=== PATIENT | female | born 1990 | race Caucasian/White ===

== ENCOUNTER → 2017-12-10 09:09 | Outpatient (CLI) | payer BC, SELFPAY ==
[2017-12-10 10:58] LABS: hCG Titer Quant., Serum 478 mIU/mL (<9 non-preg)
== END ==
PROVIDERS: Family Provider Family Medicine; PCP Family Medicine; Visit Provider Nurse Practitioner Women's Health
DX: N91.2 Amenorrhea, unspecified (principal)
CPT/HCPCS: 36415; 84702

== ENCOUNTER → 2017-12-12 07:07 | Outpatient (CLI) | payer BC, SELFPAY ==
[2017-12-12 08:02] LABS: hCG Titer Quant., Serum 1173 mIU/mL (<9 non-preg)
== END ==
PROVIDERS: Nurse Practitioner Women's Health; Family Provider Family Medicine; PCP Family Medicine; Visit Provider Obstetrics & Gynecology
DX: N91.2 Amenorrhea, unspecified (principal)
CPT/HCPCS: 36415; 84702

== ENCOUNTER → 2017-12-18 08:20 | Outpatient (CLI) | payer BC, SELFPAY ==
[2017-12-18 09:55] LABS: hCG Titer Quant., Serum 12919 mIU/mL (<9 non-preg)
== END ==
PROVIDERS: Family Provider Family Medicine; PCP Family Medicine; Visit Provider Obstetrics & Gynecology
DX: O20.0 Threatened abortion (principal); Z3A.00 Weeks of gestation of pregnancy not specified
CPT/HCPCS: 36415; 84702; 86850; 86900

== ENCOUNTER 2017-12-26 21:23 | Emergency (ER) | payer BC, SELFPAY ==
[2017-12-26 21:24] VITALS: BP 115/77; PULSE 103; RESP 18; TEMP 36.7; O2SAT 98; BMI 21.6
[2017-12-26 22:00] VITALS: BP 113/72; PULSE 104; RESP 16; O2SAT 97
--- NOTE | 2017-12-26 23:54 | ED.DCSUM_ITS ---
- ER Visit Summary Date of Service: 12/26/17 Chief Complaint: Vaginal bleeding History of Present Illness: The patient is a [address] Kristopher Marrufo. She is 6 weeks and 4 days based on her last menstrual period. She has not had an ultrasound. This is her first . Her blood type is a positive. Patient reports that approximately 1 hour ago she passed a large amount of blood. Currently she is only spotting. She describes an aching suprapubic pain that is 4 out of 10 at worst and 2 out of 10 currently. Is worsened by movement and relieved by remaining still. She denies any other complaints. Physical Examination: Vitals: Stable. Afebrile. General: Well-nourished and well-developed. Head: Normocephalic atraumatic. Neck: Supple, no lymphadenopathy. No JVD. Nontender. Cardiovascular: Regular rate and rhythm. No murmurs. Respiratory: No respiratory distress. Clear to auscultation bilaterally. Abdominal: Soft, mild suprapubic tenderness to palpation, nondistended, normal bowel sounds. No guarding, rebound, or peritoneal signs. Back: Nontender. Extremities: Nontender, no edema. Skin: Normal color, no rash. Neurologic: Alert and oriented ?3. Cranial nerves II through XII are intact. Normal strength and sensation. Psych: Normal affect. Test Results: Labs were reviewed and her blood type is indeed a positive. Her quantitative hCG was 12,919 on December 18. Today her quant is 57,851. Transvaginal ultrasound shows a single intrauterine at 6 weeks 5 days with heart tones 134. It does show a corpus luteum cyst on the left. There also is a 5.9 cm complex left ovarian cyst that is likely hemorrhagic. Emergency Department Course and Treatment: Patient refused pain and nausea medications. She is resting comfortably. Treatment Plan: The patient was discussed with Dr. Kristopher Marrufo. At this time it is not felt that the hemorrhagic cyst should cause any further problems. She is instructed to follow-up Dr. Caro within a week for another exam. Return to the emergency department for any worsening symptoms. Disposition: To home in improved and stable condition. Impression: 1. First trimester . 2. Vaginal bleeding. 3. Left ovarian hemorrhagic cyst. This note was generated with [employer] software. It may contain incorrect words, spelling, and punctuation that were not noted in review of the chart prior to signing ED Disposition - Plan for ED Patient: Disposition: Home or Assisted Living Chief Complaint: Vag Bld, Preg Instructions: ED Miscarriage Poss Referrals: Evelyne Caro MD [STAFF PHYSICIAN] - 1 Week
== END 2017-12-27 00:06 | disposition home or self-care (01) ==
LOC: ED 22:36
PROVIDERS: Emergency Provider Emergency Medicine; Family Provider Family Medicine; PCP Family Medicine
DX: O20.9 Hemorrhage in early pregnancy, unspecified (principal); O34.81 Maternal care for other abnormalities of pelvic organs, first trimester; N83.202 Unspecified ovarian cyst, left side; Z3A.01 Less than 8 weeks gestation of pregnancy
CPT/HCPCS: 36415; 76817; 84702; 99282

== ENCOUNTER → 2018-01-07 16:10 | Outpatient (CLI) | payer BC, SELFPAY ==
[2018-01-07 17:13] LABS: Absolute Lymphocyte Count 1.94 X10^3/ul (0.83-4.51); Absolute Neutrophil Count 6.9 X10^3/uL (2.0-7.7); Basophil# 0.01 X10^3/uL; Basophil% 0.1 % (0-1); Eosinophil# 0.12 X10^3/uL; Eosinophils% 1.2 % (0-5); Hematocrit 36.7 % (37-47); Lymphocyte # 1.94 X10^3/ul (4.0); Mean Corp Hgb Conc 32.7 g/gl (32-36); Mean Corpuscular Hgb 30.5 pg (27.0-32.0); Mean Corpuscular Volume 93.1 fL (81-99); Mean Platelet Vol. 9.2 fl (6.2-12.0); Monocyte# 0.74 X10^3/uL; Monocyte% 7.6 % (0-10); Neutrophil # 6.86 X10^3/uL (2.7-7.7); Platelet Count 264 K/mm3 (150-450); RBC Distribution Width SD 41.1 fl (35.1-43.9); Red Blood Count 3.94 M/mm3 (4.2-5.4); White Blood Count 9.7 K/mm3 (4.4-11.0)
[2018-01-07 17:15] LABS: POSITIVE COUNT NO; POSITIVE DIFFERENTIAL NO; POSITIVE MORPHOLOGY NO
[2018-01-07 18:12] LABS: HIV - WCH Non-Reactive (Nonreactive); Rubella IgG 415.3 IU/mL
[2018-01-09 11:20] LABS: HEPATITIS B SURFACE AG Negative (Negative)
[2018-01-11 03:49] LABS: Rapid Plasmin Reagin (RPR) NONREACTIVE (NONREACTIVE)
== END ==
PROVIDERS: Family Provider Family Medicine; PCP Family Medicine; Visit Provider Obstetrics & Gynecology
DX: Z34.90 Encounter for supervision of normal pregnancy, unspecified, unspecified trimester (principal)
CPT/HCPCS: 36415; 85025; 86592; 86703; 86762; 86850; 86900; 87340

== ENCOUNTER → 2018-01-07 21:23 | Outpatient (CLI) | payer BC, SELFPAY ==
[2018-01-07 23:22] LABS: Chlamydia Trachomatis by PCR Negative (Negative); Neisserai gonorrhoeae by PCR Negative (Negative); Probe Check PASS; Sample Adequacy Control PASS; Specimen Processing Control PASS
[2018-01-09 17:22] LABS: HPV Reflexed? NOT INDICATED
== END ==
PROVIDERS: Family Provider Family Medicine; PCP Family Medicine; Visit Provider Obstetrics & Gynecology
DX: Z34.90 Encounter for supervision of normal pregnancy, unspecified, unspecified trimester (principal); Z12.4 Encounter for screening for malignant neoplasm of cervix
CPT/HCPCS: 87086; 87491; 87591; 88175; G0145

== ENCOUNTER 2018-05-13 08:40 | Outpatient (CLI) | payer BC, SELFPAY ==
[2018-05-13 08:44] VITALS: BMI 24.0
[2018-05-13 09:01] VITALS: BMI 24.7
--- NOTE | 2018-05-13 10:30 | US_ITS ---
STUDY: SECOND AND THIRD TRIMESTER OBSTETRICAL ULTRASOUND - LIMITED REASON FOR EXAM: Female, 28 years old. Bleeding. History of placenta previa. LMP: November 10, 2017. PRIOR ULTRASOUND: Comparison is made with prior study dated December 26, 2017. TECHNIQUE: Transabdominal and Transvaginal TECHNICAL QUALITY: Adequate. FINDINGS: There is a single intrauterine fetus. The fetus is in a cephalic presentation. There is demonstrated cardiac activity with a heart rate of 150 bpm. There is a normal amniotic fluid volume. The largest amniotic fluid pocket measures 4.4 cm. The amniotic fluid index (KIAH) is 13.8 cm. The placenta is posterior with a complete previa. There are Grade 1 placental changes. The cervix measures 3.8 cm in length. Age by LMP: 26 weeks, 2 days. ADWOA by LMP: August 17, 2017. age by prior US: 26 weeks, 6 days. ADWOA by prior US: August 13, 2017. US/OB Limited (No Biometrics) IMPRESSION: Once again, there is a complete placenta previa. Electronically Signed: Brandan Gonzalez MD at 11:29 EST Tel [phone], Service support ,
--- NOTE | 2018-05-13 11:37 | OB.TRI.NOTE ---
- Problem List (1) Vaginal bleeding during Status: Acute (2) Placenta previa Status: Acute Qualifiers: Comment: complete posterior, repeat US at 28 weeks-recommended pelvic rest (3) Supervision of high risk , antepartum Status: Acute Comment: PRR ADWOA 08/17/18 Piyush (4) Status: Acute Qualifiers: Comment: genetic, carrier, and NTD screening declined. Anatomy repeat US normal, still placenta previa History of Present Illness Date of Service: 05/13/18 Was patient seen by the physician?: No Reason For Visit: MONITOR FOR PLACENTA PREVIA Date of Service: 05/13/18 History of Present Illness: co small brown discharge at home when wiping- has history of previa no ct or pain Allergies adhesive Allergy (Verified 05/13/18 09:02) Rash bacitracin [From Polysporin] Allergy (Verified 05/13/18 09:02) Rash peanut Allergy (Verified 05/13/18 09:02) Unknown polymyxin B [From Polysporin] Allergy (Verified 05/13/18 09:02) Rash processed food Allergy (Mild, Uncoded 05/13/18 09:02) Other taro Allergy (Mild, Uncoded 05/13/18 09:02) Other - Pertinent Past Medical History Medical History: Past Medical History (Last Reviewed 05/01/18 @ 08:22 by Josefina Canchola) Abnormal Pap smear of cervix Right ovarian cyst Surgical History: Past Surgical History (Last Reviewed 05/01/18 @ 08:22 by Josefina Canchola) History of right oophorectomy NST - FHR Rate Baby A Baseline: 150 Variability:: Moderate NST Reactive:: Appropriate for gestational age Impression/Plan vaginal bleeding- us done no abruption seen and stable placenta posterior previa seen long cervical length, no contractions and tracing reassuring. dc home bleeding precautions. rh positive
== END 2018-05-13 11:45 | disposition home or self-care (01) ==
LOC: WPOUT 08:46 → WP 08:47
PROVIDERS: Family Provider Family Medicine; PCP Family Medicine; Referring Provider Obstetrics & Gynecology; Visit Provider Obstetrics & Gynecology
DX: O46.90 Antepartum hemorrhage, unspecified, unspecified trimester (principal); O44.00 Complete placenta previa NOS or without hemorrhage, unspecified trimester; O09.90 Supervision of high risk pregnancy, unspecified, unspecified trimester; Z3A.00 Weeks of gestation of pregnancy not specified
CPT/HCPCS: 59025; 59050; 76815; 99218; G0378

== ENCOUNTER → 2018-05-31 09:34 | Outpatient (CLI) | payer BC, SELFPAY ==
[2018-05-31 09:32] VITALS: BMI 24.7
[2018-05-31 10:29] LABS: Absolute Lymphocyte Count 1.35 X10^3/ul (0.83-4.51); Absolute Neutrophil Count 7.2 X10^3/uL (2.0-7.7); Basophil# 0.01 X10^3/uL; Basophil% 0.1 % (0-1); Eosinophil# 0.07 X10^3/uL; Eosinophils% 0.7 % (0-5); Hematocrit 34.5 % (37-47); Hemoglobin 11.2 g/dl (12.0-15.0); Lymphocyte # 1.35 X10^3/ul (4.0); Lymphocyte % 14.4 % (19-41); Mean Corp Hgb Conc 32.5 g/gl (32-36); Mean Corpuscular Hgb 30.9 pg (27.0-32.0); Mean Corpuscular Volume 95.3 fL (81-99); Mean Platelet Vol. 8.9 fl (6.2-12.0); Monocyte# 0.76 X10^3/uL; Monocyte% 8.1 % (0-10); Neutrophil # 7.16 X10^3/uL (2.7-7.7); Neutrophil % 76.2 % (47-70); POSITIVE COUNT NO; POSITIVE DIFFERENTIAL NO; POSITIVE MORPHOLOGY NO; Platelet Count 187 K/mm3 (150-450); RBC Distribution Width CV 12.5 % (11.6-14.6); RBC Distribution Width SD 42.9 fl (35.1-43.9); Red Blood Count 3.62 M/mm3 (4.2-5.4); White Blood Count 9.4 K/mm3 (4.4-11.0)
[2018-05-31 10:35] LABS: Glucose Challenge Gest 1H 50g 96 mg/dL (70-140)
--- OUTSIDE RECORDS SUMMARY | 2018-08-04 17:03 | XMS RPT_ITS ---
:1990 Author Organization OHIP Support Name Relationship Address Phone ANTONIO MENDEZ Unavailable [address] + [place] [address] SOLANGE LION Unavailable [address] + [place] [address] [employer] Unavailable [address] + [place] [address] ANTONIO MENDEZ Unavailable [address] + [place] [address] SOLANGE LION Unavailable [address] + [place] [address] [employer] Unavailable [address] + [place] [address] DOREEN LION Unavailable Unavailable + ANTONIO EMNDEZ Unavailable [address] + [place] [address] SOLANGE LION Unavailable [address] + [place] [address] [employer] Unavailable [address] + [place] [address] ANTONIO MENDEZ Unavailable [address] + [facility] [place] [address] SOLANGE LION Unavailable [phone] [place] [address] [employer] Unavailable [address] + [place] [address] ANTONIO MENDEZ Unavailable [address] + [facility] [place] [address] SOLANGE LION Unavailable [phone] [place] [address] [employer] Unavailable [address] + [place] [address] DOREEN LION Unavailable Unavailable + ANTONIO MENDEZ Unavailable [address] + [facility] [place] [address] SOLANGE LION Unavailable [address] + [place] [address] [employer] Unavailable [address] + [place] [address] AYAD DOREEN Unavailable Unavailable + ANTONIO MENDEZ Unavailable [address] + [place] [address] SOLANGE LION Unavailable [address] + [place] [address] [employer] Unavailable [address] + [place] [address] ANTONIO MENDEZ Unavailable [address] + [facility] [place] [address] SOLANGE LION Unavailable [address] + [place] [address] [employer] Unavailable [address] + [place] [address] ANTONIO MENDEZ Unavailable [address] + [facility] [place] [address] SOLANGE LION Unavailable [address] + [place] [address] [employer] Unavailable [address] + [place] [address] ANTONIO MENDEZ Unavailable [address] + [place] [address] SOLANGE LION Unavailable [address] + [place] [address] [employer] Unavailable [address] + [place] [address] ANTONIO MENDEZ Unavailable [address] + [place] [address] SOLANGE LION Unavailable [address] + [place] [address] [employer] Unavailable [address] + [place] [address] ANTONIO MENDEZ Unavailable [address] + [facility] [place] [address] SOLANGE LION Unavailable [address] + [place] [address] [employer] Unavailable [address] + [place] [address] ANTONIO MENDEZ Unavailable [address] + [place] [address] [employer] Unavailable [address] + [place] [address] ANTONIO MENDEZ Unavailable [address] + [place] [address] SOLANGE LION Unavailable [address] + [place] [address] [employer] Unavailable [address] + [place] [address] ANTONIO MENDEZ Unavailable [address] + [place] [address] SOLANGE LION Unavailable [address] + [place] [address] [employer] Unavailable [address] + [place] [address] ANTONIO MENDEZ Unavailable [address] + [place] [address] SOLANGE LION Unavailable [address] + [place] [address] [employer] Unavailable [address] + [place] [address] ANTONIO MENDEZ Unavailable [address] + [place] [address] SOLANGE LION Unavailable [address] + [place] [address] [employer] Unavailable [address] + [place] [address] ANTONIO MENDEZ Unavailable [address] + [place] [address] SOLANGE LION Unavailable [address] + [place] [address] [employer] Unavailable [address] + [place] [address] Care Team Providers Name Role Phone JUDE WEAVERISSA Attending Unavailable EVELYNE AJ Referring Unavailable HENRIETTA FISH Attending Unavailable MARCANTHONY, EVELYNE E Referring Unavailable SERGIO SIERRA Attending Unavailable MARCANTHONY, EVELYNE E Referring Unavailable Marcanthony, Veelyne Attending Unavailable Liliana, Joseph Referring Unavailable Marcanthony, Evelyne Attending Unavailable Marcanthony, Evelyne Referring Unavailable Liliana, Joseph Primary Care Unavailable Marcanthony, Evelyne Attending Unavailable Marcanthony, Evelyne Referring Unavailable Liliana, Joseph Primary Care Unavailable Marcanthony, Evelyne Consulting Unavailable Lamont, Anne Attending Unavailable Liliana, Joseph Referring Unavailable Paramus, Anne Attending Unavailable Liliana, Joseph Primary Care Unavailable Marcanthony, Evelyne Attending Unavailable Primay Care Physicia, No Referring Unavailable Lamont, Anne Attending Unavailable Lamont, Anne Referring Unavailable Liliana, Joseph Primary Care Unavailable Marcanthony, Evelyne Attending Unavailable Marcanthony, Evelyne Referring Unavailable Liliana, Joseph Primary Care Unavailable Marcanthony, Evelyne Attending Unavailable Marcanthony, Evelyne Referring Unavailable Liliana, Joseph Primary Care Unavailable Liliana, Joseph Primary Care Unavailable DreaRamos Attending Unavailable Marcanthony, Evelyne Attending Unavailable Liliana, Joseph Referring Unavailable Liliana, Joseph Primary Care Unavailable Marcanthony, Evelyne Attending Unavailable Primay Care Physicia, No Referring Unavailable Liliana, Joseph Primary Care Unavailable Marcanthony, Evelyne Attending Unavailable Marcanthony, Evelyne Referring Unavailable Liliana, Joseph Primary Care Unavailable Marcanthony, Evelyne Attending Unavailable Liliana, Joseph Primary Care Unavailable Marcanthony, Evelyne Referring Unavailable Marcanthony, Evelyne Attending Unavailable Liliana, Joseph Referring Unavailable ASSESSMENT, HEALTH RISK Attending Unavailable [facility], Joseph Primary Care Unavailable Marcanthony, Evelyne Attending Unavailable Liliana, Joseph Referring Unavailable Lamont, Anne Attending Unavailable Liliana, Joseph Referring Unavailable PROBLEMS PROBLEMS DATE TYPE CONDITION / CODE ATTENDING STATUS SOURCE 05/31/2018 Unknown Z34.90 - Encounter LamontAnne lester Active [place] for supervision of Community normal , Hospital unspecified, Repository unspecified trimester / Z34.90(ICD-10) 05/31/2018 Unknown Z23 - Encounter ParamusAnne lester Active [place] for immunization / Community Z23(ICD-10) Hospital Repository 05/31/2018 Unknown O09.90 - Lamont, Anne Active [place] Supervision of Community high risk Hospital , Repository unspecified, unspecified trimester / O09.90(ICD-10) 05/31/2018 Unknown Z3A.28 - 28 weeks ParamusAnne Active [place] gestation of Community / Hospital Z3A.28(ICD-10) Repository 05/31/2018 Unknown O44.42 - Low lying Paramus, Anne Active [place] placenta NOS or Community without Hospital hemorrhage, second Repository trimester / O44.42(ICD-10) 05/31/2018 Unknown O46.90 - Paramus, Anne Active [place] Antepartum Community hemorrhage, Hospital unspecified, Repository unspecified trimester / O46.90(ICD-10) 01/08/2018 Unknown Z12.4 - Encounter Gordo, Active [place] for screening for [facility] malignant neoplasm Hospital of cervix / Repository Z12.4(ICD-10) 12/18/2017 Unknown O20.0 - Threatened Gordo, Active [place] / [facility] O20.0(ICD-10) Hospital Repository PROCEDURES PROCEDURES No Procedure Records FoundRESULTS RESULTS CBC W/DIFF, AUTOMATED Collected: 05/31/2018 Status: F Source: [place] 9:44 AM [facility] REPOSITORY TYPE CODE TESTS RESULT OUT OF RANGE REFERENCE UNITS LAB L100.1000 4.4-11.0 K/mm3 Normal WBC 9.4 LAB L100.1200 4.2-5.4 M/mm3 Low RBC 3.62 LAB L100.1300 12.0-15.0 g/dl Low HGB 11.2 LAB L100.1400 37-47 % Low HCT 34.5 LAB L100.1500 81-99 fL Normal MCV 95.3 LAB L100.1600 27.0-32.0 pg Normal MCH 30.9 LAB L100.1700 32-36 g/gl Normal MCHC 32.5 LAB L100.1810 11.6-14.6 % Normal RDW CV 12.5 LAB L100.1820 35.1-43.9 fl Normal RDW SD 42.9 LAB L100.1900 150-450 K/mm3 Normal PLT 187 LAB L100.2000 6.2-12.0 fl Normal MPV 8.9 LAB L100.2100 47-70 % High NEUT% 76.2 LAB L100.2200 19-41 % Low LY% 14.4 LAB L100.2300 0-10 % Normal MONO% 8.1 LAB L100.2400 0-5 % Normal EO% 0.7 LAB L100.2500 0-1 % Normal BASO% 0.1 LAB L100.2550 0.0-0.9 % Normal IM GRAN % 0.500 Result Comment: IG% - Immature Granulocytes (promyelocytes, myelocytes and metamyelocytes) > 1% indicates that a LEFT SHIFT is Present. LAB L100.2620 2.0-7.7 X10 3/uL Normal Absolute Neut 7.2 LAB L100.2720 0.83-4.51 X10 3/ul Normal Absolute Lymph 1.35 Performed By: #### L100.0100 #### [facility] [address] [place], [address] GLUCOSE CHALLENGE GEST Collected: 05/31/2018 Status: F Source: [place] 1H 50G 9:44 AM [facility] REPOSITORY TYPE CODE TESTS RESULT OUT OF RANGE REFERENCE UNITS LAB L501.0250 70-140 mg/dL Normal GLU GEST 96 50g 1H Performed By: #### L501.0250 #### [facility] [address] [place], [address] TYPE AND SCREEN Collected: 05/31/2018 Status: F Source: [place] 9:44 AM [facility] REPOSITORY Order Comment: Reason for Type AND Screen/Red Cells: TYPE CODE TESTS RESULT OUT OF RANGE REFERENCE UNITS LAB B10.0800 A Normal BLOOD TYPE GEL POSITIVE LAB B100.4000 Normal Antibody NEGATIVE Screen Performed By: #### B101.7450 #### [facility] [address] [place], [address] CURATORIAL SPECIALIST OFFICE VISIT Observed: 05/31/2018 Status: F Source: [place] REPORT 9:32 AM [facility] REPOSITORY [facility] [address] [place] [address] OFFICE VISIT Date of Service: 05/31/18 MR#: [id number] Acct: [id number] Name: CAROLE LION Rep #: [id number] : 1990 Provider: SRAVANTHI Miguel Age/Sex: 28/F Location: [facility] [place] Status: Signed Intake Vital Signs05/31/18 Body Mass Index (BMI) 24.7 05/31/18 Height 5 ft 5 in 05/31/18 Weight: 155 lb 2 oz 05/31/18 Body Mass Index (BMI) 25.8 05/31/18 Blood Pressure 100/64 Intake Visit Reasons: 28 WEEK OB Entertainment Musician Required: No Accompanied by: Is patient in pain?: No Allergies adhesive Allergy (Verified 05/31/18 09:23) Rash bacitracin [From Polysporin] Allergy (Verified 05/31/18 09:23) Rash peanut Allergy (Verified 05/31/18 09:23) Unknown polymyxin B [From Polysporin] Allergy (Verified 05/31/18 09:23) Rash processed food Allergy (Mild, Uncoded 05/13/18 09:02) Other taro Allergy (Mild, Uncoded 05/13/18 09:02) Other Medications vitamin,calcium,pbufjxfq-exyr-kjghk acid tablet 1 tab PO QDAY 01/01/18 [History Confirmed 05/31/18] breast pump See Dose Instructions .ROUTE .MEDSUPPLY #1 ea 03/06/18 [Rx Confirmed 05/31/18] Ranitidine HCl 150 mg PO BID PRN 05/13/18 [History Confirmed 05/31/18] Last Menstral Period: 11/10/17 Zika: Zika virus screening: Negative : No PFSH PFSH Medical History Abnormal Pap smear of cervix (Acute) Right ovarian cyst (Acute) Surgical History History of right oophorectomy (Acute) Family History Grandmother Diabetes Grandfather Heart disease Social History Smoking Status: Never smoker alcohol intake: never substance use type: does not use caffeine: No what type of physical activity do you participate in: walking seatbelt use: always do you feel safe at home: Yes additional social history: -Doreen- [employer] Patient works at [employer] Pregancy History 1 Elective abortions Hx Para Spontaneous abortions HPI 28 WEEK OB: Details: CAROLE LION is a 28 year old who presents for routine OB visit. OB Visit ADWOA Calculator Estimated Delivery Date 08/17/18 Based on LMP (certain) 11/10/17 Current WG 28w 6d Number 1 Expected Delivery Route/Plan Specific Issue/Plans flu vaccine: declines tdap vaccine: [] rhogam: [] LARC form signed: [] labor support person: Doreen pain management: epidural cut cord/dad catch: maybe : yes/pump PP control planned: [] discussed possible routes of delivery and associated risks: [] special requests: [] Initial Weight: Not Recorded Date Weight BP Urine PFHR FuHt Pres MCTX DilatioFetal SVisit NProvideComment rot ov n t ote r s EGA Ef Gluco faced se 02/05/1139 lb 122/80 Pdoymjd272 12 absent no vb cSM 8 4 oz e ramping 12 w 3d Negati ve Visit Notes Visit Date: 05/31/18 No VB, LOF. Good FM ZA FranklinC on 05/31/18 Visit Date: 05/01/18 no vb lof good fm no regular ctx Evelyne Aj MD on 05/01/18 Visit Date: 04/03/18 No VB, LOF ZA FranklinC on 04/03/18 Visit Date: 03/06/18 no vb some stretching pains. Evelyne Aj MD on 03/06/18 Visit Date: 02/05/18 no vb cramping Evelyne Aj MD on 02/05/18 ACOG First Trimester First Trimester: Desire for , Alcohol, Tobacco Cessation, Illicit/Recreational Drug/Substance Use, Intimate Partner Violence, Barriers to care, Unstable Housing, Communication Barriers, Environmental/Work Hazards, Anticipated Course of Care, Toxoplasmosis Precations, Use of Any medications, Sexual activity, Exercise, Dental Care, Sauna/Hot tub use, Seat Belt use, Childbirth classes/Hospital facilities, , Travel, Indications for US and Screening for Aneuploidy Diagnostics Diagnostics Labs Blood Type A POSITIVE 01/07/18 Antibody Screen NEGATIVE 01/07/18 Hct 36.7 % (37-47) L 01/07/18 Hgb 12.0 g/dl (12.0-15.0) 01/07/18 Obstetrics Ultrasound 05/13/18 Rubella IgG Antibody 415.3 IU/mL 01/07/18 RPR NONREACTIVE (NONREACTIVE) 01/07/18 Hep Bs Antigen Negative (Negative) 01/07/18 Chlam trachomat DNA PCR Negative (Negative) 01/07/18 N.gonorrhoeae DNA (PCR) Negative (Negative) 01/07/18 Details: HIV: Urine Culture: Sequential Screen: NIPT Screen: Results [id number] Office Urine Glucose Negative Last Edit by Swati Hartley on 05/31/18 09:22 Office Urine Protein Negative Last Edit by Swati Hartley on 05/31/18 09:22 Immunizations Adacel (Tdap Adolesn/Adult)(PF)2Lf-(2.5-5-3-5mcg)-5 Lf/0.5 mL IM susp Performing Provider: IVETTE Franklin Administered by: Swati Hartley on 05/31/18 09:25 Dose Route Admin Location Lot Number Expiration Date NDC Custodial Officer 0.5 mL IM Left Arm (SQ) [id number] 04/27/20 29885-988-33 [employer] VIS Given Date VIS Publication Date 05/31/18 07/07/14 Eligibility Eligibility Date Assessment AND Plan Problems 1. Supervision of high risk , antepartum O09.90 PRR ADWOA 08/17/18 Doreen 2. 28 weeks gestation of Z3A.28 genetic, carrier, and NTD screening declined. Anatomy repeat US normal, still placenta previa 3. Low lying placenta nos or without hemorrhage, second trimester O44.42 Previously complete previa. [facility] recommends repeat US at 32 weeks 4. Vaginal bleeding during O46.90 Plan Orders placed: Tdap, 28 wk labs. Recheck low lying placenta at 32 wk [facility] US Reviewed of labor precautions, movement/kick counts ACOG trimester education reviewed and updated See problem list details for updated plan of care Gestational age appropriate handout given RTO: 2 weeks Orders Orders: Medications Discontinued: Adacel (Tdap Adolesn/Adult)(PF)2Lf-(2.5-5-3-5mcg)-5 Lf/0.0.5 mL IM ONCE 0.5 mL 0RF NS Z23 5 mL IM susp (diph,pertuss(acel),tet vac(PF)) Disconti nued Reason: Office Medication has been Documented as gi eddie Coding Level of Care Code OB Routine Diagnoses Supervision of high risk , antepartum O09.90 28 weeks gestation of Z3A.28 Weeks of gestation: 28 weeks Low lying placenta nos or without hemorrhage, second trimester O44.42 Vaginal bleeding during O46.90 05/31/18 0932 <Electronically signed by Anne STEELE> Date Anne MENDENHALLC Cosigner Signature: Date (if applicable) CC: OB LIMITED (NO Observed: 05/13/2018 Status: F Source: [place] [employer]) 9:54 AM [facility] REPOSITORY [facility] Imaging Services [address] [place] [address] [place] [address] OB Limited (No Biometrics) MR#: [id number] Acct: [id number] Name: CAROLE LION Rep #: [id number] : 1990 F 28 From: Brandan Gonzalez MD PCP: Joseph Ford MD Status: DEP CLI Study: OB Limited (No Biometrics) Date of Exam: 05/13/18 Exam# [id number] Ordering Dr: Evelyne Aj MD STUDY: SECOND AND THIRD TRIMESTER OBSTETRICAL ULTRASOUND - LIMITED REASON FOR EXAM: Female, 28 years old. Bleeding. History of placenta previa. LMP: November 10, 2017. PRIOR ULTRASOUND: Comparison is made with prior study dated December 26, 2017. TECHNIQUE: Transabdominal and Transvaginal TECHNICAL QUALITY: Adequate. FINDINGS: There is a single intrauterine fetus. The fetus is in a cephalic presentation. There is demonstrated cardiac activity with a heart rate of 150 bpm. There is a normal amniotic fluid volume. The largest amniotic fluid pocket measures 4.4 cm. The amniotic fluid index (KIAH) is 13.8 cm. The placenta is posterior with a complete previa. There are Grade 1 placental changes. The cervix measures 3.8 cm in length. Age by LMP: 26 weeks, 2 days. ADWOA by LMP: August 17, 2017. age by prior US: 26 weeks, 6 days. ADWOA by prior US: August 13, 2017. US/OB Limited (No Biometrics) IMPRESSION: Once again, there is a complete placenta previa. Electronically Signed: Brandan Gonzalez MD at 11:29 EST Tel [phone], Service support , CC: Joseph Ford MD; Evelyne Aj MD Centrifugal Spinner: Signed CURATORIAL SPECIALIST OFFICE VISIT Observed: 05/01/2018 Status: F Source: [place] REPORT 9:19 AM [facility] REPOSITORY [facility] [address] [place] [address] OFFICE VISIT Date of Service: 05/01/18 MR#: [id number] Acct: [id number] Name: CAROLE LION Rep #: [id number] : 1990 Provider: Evelyne Aj MD Age/Sex: 28/F Location: [facility] [place] Status: Signed Intake Vital Signs05/01/18 Height 5 ft 5 in 05/01/18 Weight: 147 lb 4 oz 05/01/18 Body Mass Index (BMI) 24.5 05/01/18 Blood Pressure 124/78 H Intake Visit Reasons: est ob 24 weeks Is patient in pain?: No Allergies adhesive Allergy (Verified 05/01/18 08:22) Rash bacitracin [From Polysporin] Allergy (Verified 05/01/18 08:22) Rash peanut Allergy (Verified 05/01/18 08:22) Unknown polymyxin B [From Polysporin] Allergy (Verified 05/01/18 08:22) Rash processed food Allergy (Mild, Uncoded 05/01/18 08:22) Other taro Allergy (Mild, Uncoded 05/01/18 08:22) Other Medications vitamin,calcium,lkxqobcn-cpxu-uidyf acid tablet 1 tab PO QDAY 01/01/18 [History Confirmed 05/01/18] breast pump See Dose Instructions .ROUTE .MEDSUPPLY #1 ea 03/06/18 [Rx Confirmed 05/01/18] Last Menstral Period: 11/10/17 Zika: Zika virus screening: Negative : No PFSH PFSH Medical History Abnormal Pap smear of cervix (Acute) Right ovarian cyst (Acute) Surgical History History of right oophorectomy (Acute) Family History Grandmother Diabetes Grandfather Heart disease Social History Smoking Status: Never smoker alcohol intake: never substance use type: does not use caffeine: No what type of physical activity do you participate in: walking seatbelt use: always do you feel safe at home: Yes additional social history: -Christiana [employer] Patient works at [employer] Pregancy History 1 Elective abortions Hx Para Spontaneous abortions HPI est ob 24 weeks: Details: CAROLE LION is a 28 year old who presents for routine OB visit. OB Visit ADWOA Calculator Estimated Delivery Date 08/17/18 Based on LMP (certain) 11/10/17 Current WG 24w 4d Number 1 Expected Delivery Route/Plan Specific Issue/Plans flu vaccine: declines tdap vaccine: [] rhogam: [] LARC form signed: [] labor support person: Doreen pain management: epidural cut cord/dad catch: maybe : yes/pump PP control planned: [] discussed possible routes of delivery and associated risks: [] special requests: [] Initial Weight: Not Recorded Date Weight BP Urine PrFHR FuHt Pres MoCTX DilationFetal StVisit NoProviderComments E ot v te [place] G Effac lucose ed Visit Notes Visit Date: 05/01/18 no vb lof good fm no regular ctx Evelyne Aj MD on 05/01/18 Visit Date: 04/03/18 No VB, LOF Anne Miguel NP-C on 04/03/18 Visit Date: 03/06/18 no vb some stretching pains. Evelyne Aj MD on 03/06/18 Visit Date: 02/05/18 no vb cramping Evelyne Aj MD on 02/05/18 ACOG First Trimester First Trimester: Desire for , Alcohol, Tobacco Cessation, Illicit/Recreational Drug/Substance Use, Intimate Partner Violence, Barriers to care, Unstable Housing, Communication Barriers, Environmental/Work Hazards, Anticipated Course of Care, Toxoplasmosis Precations, Use of Any medications, Sexual activity, Exercise, Dental Care, Sauna/Hot tub use, Seat Belt use, Childbirth classes/Hospital facilities, , Travel, Indications for US and Screening for Aneuploidy Diagnostics Diagnostics Labs Blood Type A POSITIVE 01/07/18 Antibody Screen NEGATIVE 01/07/18 Hct 36.7 % (37-47) L 01/07/18 Hgb 12.0 g/dl (12.0-15.0) 01/07/18 Obstetrics Ultrasound 12/26/17 Rubella IgG Antibody 415.3 IU/mL 01/07/18 RPR NONREACTIVE (NONREACTIVE) 01/07/18 Hep Bs Antigen Negative (Negative) 01/07/18 Chlam trachomat DNA PCR Negative (Negative) 01/07/18 N.gonorrhoeae DNA (PCR) Negative (Negative) 01/07/18 Details: HIV: Urine Culture: Sequential Screen: NIPT Screen: Assessment AND Plan Problems 1. Placenta previa in second trimester O44.02 complete posterior, repeat US at 28 weeks-recommended pelvic rest 2. Supervision of high risk , antepartum O09.90 PRR ADWOA 08/17/18 Doreen 3. 24 weeks gestation of Z3A.24 genetic, carrier, and NTD screening declined. Anatomy repeat US normal, still placenta previa Plan ACOG trimester education reviewed and updated. see problem list details for updated plan management information and see below for orders placed at this visit. [place] appropriate handout given. Orders Orders: Coding Level of Care Code OB Routine Diagnoses Placenta previa in second trimester O44.02 Trimester: second trimester Supervision of high risk , antepartum O09.90 24 weeks gestation of Z3A.24 Weeks of gestation: 24 weeks 05/01/18 0919 <Electronically signed by Evelyne Aj MD> Date Evelyne Alarcon Signature: Date (if applicable) CC: CURATORIAL SPECIALIST OFFICE VISIT Observed: 04/03/2018 Status: F Source: [place] REPORT 9:[address] [facility] [place] [address] [place] [address] OFFICE VISIT Date of Service: 04/03/18 MR#: [id number] Acct: [id number] Name: CAROLE LION Rep #: [id number] : 1990 Provider: SRAVANTHI Miguel Age/Sex: 28/F Location: [facility] [place] Status: Signed Intake Vital Signs04/03/18 Height 5 ft 5 in 04/03/18 Weight: 144 lb 6 oz 04/03/18 Body Mass Index (BMI) 24.0 04/03/18 Blood Pressure 122/78 H Intake Visit Reasons: est ob 20 weeks Entertainment Musician Required: No Accompanied by: Is patient in pain?: No Allergies adhesive Allergy (Verified 04/03/18 08:22) Rash bacitracin [From Polysporin] Allergy (Verified 04/03/18 08:22) Rash peanut Allergy (Verified 04/03/18 08:22) Unknown polymyxin B [From Polysporin] Allergy (Verified 04/03/18 08:22) Rash processed food Allergy (Mild, Uncoded 02/05/18 08:10) Other taro Allergy (Mild, Uncoded 02/05/18 08:10) Other Medications vitamin,calcium,amcfuahy-pbrk-fwlaw acid tablet 1 tab PO QDAY 01/01/18 [History Confirmed 04/03/18] breast pump See Dose Instructions .ROUTE .MEDSUPPLY #1 ea 03/06/18 [Rx Confirmed 04/03/18] Last Menstral Period: 11/10/17 Zika: Zika virus screening: Negative : No PFSH PFSH Medical History Abnormal Pap smear of cervix (Acute) Right ovarian cyst (Acute) Surgical History History of right oophorectomy (Acute) Family History Grandmother Diabetes Grandfather Heart disease Social History Smoking Status: Never smoker alcohol intake: never substance use type: does not use caffeine: No what type of physical activity do you participate in: walking seatbelt use: always do you feel safe at home: Yes additional social history: -Christiana [employer] Patient works at [employer] Pregancy History 1 Elective abortions Hx Para Spontaneous abortions HPI est ob 20 weeks: Details: CAROLE LION is a 28 year old who presents for routine OB visit. OB Visit ADWOA Calculator Estimated Delivery Date 08/17/18 Based on LMP (certain) 11/10/17 Current WG 20w 4d Number 1 Expected Delivery Route/Plan Specific Issue/Plans flu vaccine: declines tdap vaccine: [] rhogam: [] LARC form signed: [] labor support person: Doreen pain management: epidural cut cord/dad catch: maybe : yes/pump PP control planned: [] discussed possible routes of delivery and associated risks: [] special requests: [] Initial Weight: Not Recorded Date Weight BP Urine PrFHR FuHt Pres MoCTX DilationFetal StVisit NoProviderComments E ot v te [place] G Effac lucose ed Visit Notes Visit Date: 04/03/18 No VB, LOF Anne Miguel PREDICTIVE MAINTENANCE SPECIALIST-C on 04/03/18 Visit Date: 03/06/18 no vb some stretching pains. Evelyne Aj MD on 03/06/18 Visit Date: 02/05/18 no vb cramping Evelyne Aj MD on 02/05/18 ACOG First Trimester First Trimester: Desire for , Alcohol, Tobacco Cessation, Illicit/Recreational Drug/Substance Use, Intimate Partner Violence, Barriers to care, Unstable Housing, Communication Barriers, Environmental/Work Hazards, Anticipated Course of Care, Toxoplasmosis Precations, Use of Any medications, Sexual activity, Exercise, Dental Care, Sauna/Hot tub use, Seat Belt use, Childbirth classes/Hospital facilities, , Travel, Indications for US and Screening for Aneuploidy Diagnostics Diagnostics Labs Blood Type A POSITIVE 01/07/18 Antibody Screen NEGATIVE 01/07/18 Hct 36.7 % (37-47) L 01/07/18 Hgb 12.0 g/dl (12.0-15.0) 01/07/18 Obstetrics Ultrasound 12/26/17 Rubella IgG Antibody 415.3 IU/mL 01/07/18 RPR NONREACTIVE (NONREACTIVE) 01/07/18 Hep Bs Antigen Negative (Negative) 01/07/18 Chlam trachomat DNA PCR Negative (Negative) 01/07/18 N.gonorrhoeae DNA (PCR) Negative (Negative) 01/07/18 Details: HIV: Urine Culture: Sequential Screen: NIPT Screen: Results [id number] Office Urine Glucose Negative Last Edit by Swati Hartley on 04/03/18 08:20 Office Urine Protein Negative Last Edit by Swati Hartley on 04/03/18 08:20 Assessment AND Plan Problems 1. Supervision of high risk , antepartum O09.90 PRR ADWOA 08/17/18 Doreen 2. 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 Anatomy US needs repeated in 2 weeks to check heart/spine. 3. Placenta previa in second trimester O44.02 complete posterior, repeat US at 28 weeks-recommended pelvic rest Plan Orders placed: US next week to complete anatomy US since could not see spine. Has US scheduled at 28 wk to recheck placenta Discussed placenta previa, pelvic rest Reviewed of labor precautions, movement/kick counts ACOG trimester education reviewed and updated See problem list details for updated plan of care Gestational age appropriate handout given RTO: 4 weeks Orders Orders: Coding Level of Care Code OB Routine Diagnoses Supervision of high risk , antepartum O09.90 20 weeks gestation of Z3A.20 Weeks of gestation: 20 weeks Placenta previa in second trimester O44.02 Trimester: second trimester 04/03/18 0908 <Electronically signed by Anne STEELE> Date Anne STEELE Cosigner Signature: Date (if applicable) CC: CURATORIAL SPECIALIST OFFICE VISIT Observed: 03/06/2018 Status: F Source: [place] RE[place] 9:20 AM [facility] [address] [place] [address] OFFICE VISIT Date of Service: 03/06/18 MR#: [id number] Acct: [id number] Name: CAROLE LION Rep #: [id number] : 1990 Provider: Evelyne Aj MD Age/Sex: 28/F Location: [facility] [place] Status: Signed Intake Vital Signs03/06/18 Height 5 ft 5 in 03/06/18 Weight: 142 lb 8 oz 03/06/18 Body Mass Index (BMI) 23.7 03/06/18 Blood Pressure 112/60 Intake Visit Reasons: est ob 16 weeks Entertainment Musician Required: No Is patient in pain?: No Allergies adhesive Allergy (Verified 03/06/18 08:51) Rash bacitracin [From Polysporin] Allergy (Verified 03/06/18 08:51) Rash peanut Allergy (Verified 03/06/18 08:51) Unknown polymyxin B [From Polysporin] Allergy (Verified 03/06/18 08:51) Rash processed food Allergy (Mild, Uncoded 02/05/18 08:10) Other taro Allergy (Mild, Uncoded 02/05/18 08:10) Other Medications vitamin,calcium,zksylccm-zsmv-zalgg acid tablet 1 tab PO QDAY 01/01/18 [History Confirmed 02/05/18] breast pump See Dose Instructions .ROUTE .MEDSUPPLY #1 ea 03/06/18 [Rx Confirmed 03/06/18] Last Menstral Period: 11/10/17 Zika: Zika virus screening: Negative : No PFSH PFSH Medical History Abnormal Pap smear of cervix (Acute) Right ovarian cyst (Acute) Surgical History History of right oophorectomy (Acute) Family History Grandmother Diabetes Grandfather Heart disease Social History Smoking Status: Never smoker alcohol intake: never substance use type: does not use caffeine: No what type of physical activity do you participate in: walking seatbelt use: always do you feel safe at home: Yes additional social history: -Christiana Crowe Patient works at [employer] Pregancy History 1 Elective abortions Hx Para Spontaneous abortions HPI est ob 16 weeks: Details: CAROLE LION is a 28 year old who presents for routine OB visit. Glucose and Protein urine dip negative. OB Visit ADWOA Calculator Estimated Delivery Date 08/17/18 Based on LMP (certain) 11/10/17 Current WG 16w 4d Number 1 Expected Delivery Route/Plan Specific Issue/Plans flu vaccine: [] tdap vaccine: [] rhogam: [] LARC form signed: [] labor support person: [] pain management: [] cut cord/dad catch: [] : [] PP control planned: [] discussed possible routes of delivery and associated risks: [] special requests: [] Initial Weight: Not Recorded Date Weight BP Urine PrFHR FuHt Pres MoCTX DilationFetal StVisit NoProviderComments E ot v te GA G Effac lucose ed Visit Notes Visit Date: 03/06/18 no vb some stretching pains. Evelyne Aj MD on 03/06/18 Visit Date: 02/05/18 no vb cramping Evelyne Aj MD on 02/05/18 ACOG First Trimester First Trimester: Desire for , Alcohol, Tobacco Cessation, Illicit/Recreational Drug/Substance Use, Intimate Partner Violence, Barriers to care, Unstable Housing, Communication Barriers, Environmental/Work Hazards, Anticipated Course of Care, Toxoplasmosis Precations, Use of Any medications, Sexual activity, Exercise, Dental Care, Sauna/Hot tub use, Seat Belt use, Childbirth classes/Hospital facilities, , Travel, Indications for US and Screening for Aneuploidy Diagnostics Diagnostics Labs Blood Type A POSITIVE 01/07/18 Antibody Screen NEGATIVE 01/07/18 Hct 36.7 % (37-47) L 01/07/18 Hgb 12.0 g/dl (12.0-15.0) 01/07/18 Obstetrics Ultrasound 12/26/17 Rubella IgG Antibody 415.3 IU/mL 01/07/18 RPR NONREACTIVE (NONREACTIVE) 01/07/18 Hep Bs Antigen Negative (Negative) 01/07/18 Chlam trachomat DNA PCR Negative (Negative) 01/07/18 N.gonorrhoeae DNA (PCR) Negative (Negative) 01/07/18 Details: HIV: Urine Culture: Sequential Screen: NIPT Screen: Assessment AND Plan Problems 1. Encounter for supervision of normal first in first trimester Z34.01 PRR ADWOA 08/17/18 Doreen 2. 12 weeks gestation of Z3A.12 genetic, carrier, and NTD screening declined. anatomy scan ordered. Plan ACOG trimester education reviewed and updated. see problem list details for updated plan management information and see below for orders placed at this visit. GA appropriate handout given. Medications New: Coding Level of Care Code OB Routine Diagnoses Encounter for supervision of normal first in first trimester Z34.01 Normal : normal first Trimester: first trimester 12 weeks gestation of Z3A.12 Weeks of gestation: 12 weeks 03/06/18 0920 <Electronically signed by Evelyne Aj MD> Date Evelyne Aj MD Cosigner Signature: Date (if applicable) CC: LIPID PROFILE Collected: 02/26/2018 Status: F Source: [place] 7:55 AM [facility] REPOSITORY TYPE CODE TESTS RESULT OUT OF RANGE REFERENCE UNITS LAB L501.4900 200 mg/dL High CHOL 230 Result Comment: <200 mg/dL Desirable 200-240 mg/dL Borderline >240 mg/dL High Risk LAB L501.5000 mg/dL Normal TRIG 194 Result Comment: The drugs N-Acetylcysteine and Metamizole may falsely depress this assay. Serum Triglycerides Reference Interval Normal <150 mg/dL Borderline high 150 - 199 mg/dL High 200 - 499 mg/dL Very High > or = 500 mg/dL LAB L501.6400 mg/dL Normal HDL 64 Result Comment: The drugs N-Acetylcysteine and Metamizole may falsely depress this assay. Reference Range HDL <40 mg/dL Low HDL Cholesterol HDL >or= 60 mg/dL High HDL Cholesterol LAB L501.6500 0-130 mg/dL Normal LDL 127 LAB L501.6600 5-40 mg/dL Normal VLDL 39 Performed By: #### L500.4100, L501.0100 #### [facility] [address] [place], [address] GLUCOSE Collected: 02/26/2018 Status: F Source: [place] 7:55 AM [facility] REPOSITORY TYPE CODE TESTS RESULT OUT OF RANGE REFERENCE UNITS LAB L501.0100 74-106 mg/dL Low GLU 71 Result Comment: Please note revised GLUCOSE reference range effective 2017. Performed By: #### L500.4100, L501.0100 #### [facility] [address] [place], [address] CURATORIAL SPECIALIST OFFICE VISIT Observed: 02/05/2018 Status: F Source: [place] REPORT 8:46 AM [facility] REPOSITORY [facility] [address] [place] [address] OFFICE VISIT Date of Service: 02/05/18 MR#: [id number] Acct: [id number] Name: CAROLE LION Rep #: [id number] : 1990 Provider: Evelyne Aj MD Age/Sex: 27/F Location: [facility] [place] Status: Signed Intake Vital Signs02/05/18 Height 5 ft 5 in 02/05/18 Weight: 139 lb 4 oz 02/05/18 Body Mass Index (BMI) 23.1 02/05/18 Blood Pressure 122/80 H Intake Visit Reasons: est ob 12 weeks Chief Complaint: est ob Entertainment Musician Required: No Is patient in pain?: No Allergies adhesive Allergy (Verified 02/05/18 08:10) Rash bacitracin [From Polysporin] Allergy (Verified 02/05/18 08:10) Rash peanut Allergy (Verified 02/05/18 08:10) Unknown polymyxin B [From Polysporin] Allergy (Verified 02/05/18 08:10) Rash processed food Allergy (Mild, Uncoded 02/05/18 08:10) Other taro Allergy (Mild, Uncoded 02/05/18 08:10) Other Medications vitamin,calcium,qdcsmiuv-udxn-odmbi acid tablet 1 tab PO QDAY 01/01/18 [History Confirmed 02/05/18] Last Menstral Period: 11/10/17 Zika: Zika virus screening: Negative : No PFSH PFSH Medical History Abnormal Pap smear of cervix (Acute) Right ovarian cyst (Acute) Surgical History History of right oophorectomy (Acute) Family History Grandmother Diabetes Grandfather Heart disease Social History Smoking Status: Never smoker alcohol intake: never substance use type: does not use caffeine: No what type of physical activity do you participate in: walking seatbelt use: always do you feel safe at home: Yes additional social history: -Christiana Harper [employer] Patient works at [employer] Pregancy History 1 Elective abortions Hx Para Spontaneous abortions HPI est ob 12 weeks: Details: CAROLE LION is a 27 year old who presents for routine OB visit. OB Visit ADWOA Calculator Estimated Delivery Date 08/17/18 Based on LMP (certain) 11/10/17 Current WG 12w 3d Number 1 Expected Delivery Route/Plan Specific Issue/Plans flu vaccine: [] tdap vaccine: [] rhogam: [] LARC form signed: [] labor support person: [] pain management: [] cut cord/dad catch: [] : [] PP control planned: [] discussed possible routes of delivery and associated risks: [] special requests: [] Initial Weight: Not Recorded Date Weight BP Urine PrFHR FuHt Pres MoCTX DilationFetal StVisit NoProviderComments E ot v te [place] G Effac lucose ed Visit Notes Visit Date: 02/05/18 no vb cramping Evelyne Aj MD on 02/05/18 ACOG First Trimester First Trimester: Desire for , Alcohol, Tobacco Cessation, Illicit/Recreational Drug/Substance Use, Intimate Partner Violence, Barriers to care, Unstable Housing, Communication Barriers, Environmental/Work Hazards, Anticipated Course of Care, Toxoplasmosis Precations, Use of Any medications, Sexual activity, Exercise, Dental Care, Sauna/Hot tub use, Seat Belt use, Childbirth classes/Hospital facilities, , Travel, Indications for US and Screening for Aneuploidy Diagnostics Diagnostics Labs Blood Type A POSITIVE 01/07/18 Antibody Screen NEGATIVE 01/07/18 Hct 36.7 % (37-47) L 01/07/18 Hgb 12.0 g/dl (12.0-15.0) 01/07/18 Obstetrics Ultrasound 12/26/17 Rubella IgG Antibody 415.3 IU/mL 01/07/18 RPR NONREACTIVE (NONREACTIVE) 01/07/18 Hep Bs Antigen Negative (Negative) 01/07/18 Chlam trachomat DNA PCR Negative (Negative) 01/07/18 N.gonorrhoeae DNA (PCR) Negative (Negative) 01/07/18 Details: HIV: Urine Culture: Sequential Screen: NIPT Screen: Results [id number] Office Urine Glucose Negative Last Edit by Donya Danielle on 02/05/18 08:14 Office Urine Protein Negative Last Edit by Donya Danielle on 02/05/18 08:14 Assessment AND Plan Problems 1. 12 weeks gestation of Z3A.12 genetic, carrier, and NTD screening declined. anatomy scan ordered. 2. Encounter for supervision of normal first in first trimester Z34.01 PRR ADWOA 08/17/18 [place] Plan ACOG trimester education reviewed and updated. see problem list details for updated plan management information and see below for orders placed at this visit. GA appropriate handout given. declines genetic screening considering quad/afp Orders Orders: Coding Level of Care Code OB Routine Diagnoses 12 weeks gestation of Z3A.12 Weeks of gestation: 12 weeks Encounter for supervision of normal first in first trimester Z34.01 Normal : normal first Trimester: first trimester 02/05/18 0846 <Electronically signed by Evelyne Aj MD> Date Evelyne Aj MD Cosigner Signature: Date (if applicable) CC: CBC W/DIFF, AUTOMATED Collected: 01/07/2018 Status: F Source: [place] 4:24 PM [facility] REPOSITORY TYPE CODE TESTS RESULT OUT OF RANGE REFERENCE UNITS LAB L100.1000 4.4-11.0 K/mm3 Normal WBC 9.7 LAB L100.1200 4.2-5.4 M/mm3 Low RBC 3.94 LAB L100.1300 12.0-15.0 g/dl Normal HGB 12.0 LAB L100.1400 37-47 % Low HCT 36.7 LAB L100.1500 81-99 fL Normal MCV 93.1 LAB L100.1600 27.0-32.0 pg Normal MCH 30.5 LAB L100.1700 32-36 g/gl Normal MCHC 32.7 LAB L100.1810 11.6-14.6 % Normal RDW CV 12.0 LAB L100.1820 35.1-43.9 fl Normal RDW SD 41.1 LAB L100.1900 150-450 K/mm3 Normal PLT 264 LAB L100.2000 6.2-12.0 fl Normal MPV 9.2 LAB L100.2100 47-70 % High NEUT% 71.0 LAB L100.2200 19-41 % Normal LY% 20.0 LAB L100.2300 0-10 % Normal MONO% 7.6 LAB L100.2400 0-5 % Normal EO% 1.2 LAB L100.2500 0-1 % Normal BASO% 0.1 LAB L100.2550 0.0-0.9 % Normal IM GRAN % 0.100 Result Comment: IG% - Immature Granulocytes (promyelocytes, myelocytes and metamyelocytes) > 1% indicates that a LEFT SHIFT is Present. LAB L100.2620 2.0-7.7 X10 3/uL Normal Absolute Neut 6.9 LAB L100.2720 0.83-4.51 X10 3/ul Normal Absolute Lymph 1.94 Performed By: #### L100.0100 #### [facility] [address] [facility] [place], [place], [id number] TYPE AND SCREEN Collected: 01/07/2018 Status: F Source: [place] 4:23 PM [facility] REPOSITORY Order Comment: Reason for Type AND Screen/Red Cells: TYPE CODE TESTS RESULT OUT OF RANGE REFERENCE UNITS LAB B10.0800 A Normal BLOOD TYPE GEL POSITIVE LAB B100.4000 Normal Antibody NEGATIVE Screen Performed By: #### B101.7450 #### [facility] [address] [place] [address]. [place], [place], [id number] RUBELLA IGG Collected: 01/07/2018 Status: F Source: [place] 4:23 PM [facility] REPOSITORY TYPE CODE TESTS RESULT OUT OF RANGE REFERENCE UNITS LAB L509.4000 IU/mL Normal Rubella IgG 415.3 Result Comment: Antibody results Interpretation of Immune Status < 5 IU/ml Presumed Non-immune 5 - < 10 IU/ml Equivocal > or = 10 IU/ml Presumed Immune Performed By: #### L509.4000, L3890.6005 #### [facility] [address] [place] [address]. [place], [address] #### L3100.0390 #### [facility] (refer to report for specific site) refer to report for address and phone number HIV - [facility] Collected: 01/07/2018 Status: F Source: [place] 4:23 PM [facility] REPOSITORY TYPE CODE TESTS RESULT OUT OF RANGE REFERENCE UNITS LAB L3890.6005 Nonreactive Normal HIV - [facility] Non-Reactive Performed By: #### L509.4000, L3890.6005 #### [facility] [address] [place] [address]. [place], [place], [id number] #### L3100.0390 #### [facility] (refer to report for specific site) refer to report for address and phone number HEPATITIS B SURFACE Collected: 01/07/2018 Status: F Source: [place] AG 4:23 PM [facility] REPOSITORY TYPE CODE TESTS RESULT OUT OF RANGE REFERENCE UNITS LAB L3100.0400 Negative Normal HB Negative SURF AG Result Comment: Performed at: - [facility] [id number] Medical Reception Specialist: Jaron Westfall PhD, Phone: [phone] Performed By: #### L509.4000, L3890.6005 #### [facility] [address] [place], [address] #### L3100.0390 #### [facility] (refer to report for specific site) refer to report for address and phone number RAPID PLASMIN REAGIN Collected: 01/07/2018 Status: F Source: [place] (RPR) 4:23 PM [facility] REPOSITORY TYPE CODE TESTS RESULT OUT OF REFERENCE UNITS RANGE LAB L700.5000 NONREACTIVE NONREACTIVE Normal RPR Performed By: #### L700.5000 #### [facility] [address] [place], [address] CURATORIAL SPECIALIST OFFICE VISIT Observed: 01/07/2018 Status: F Source: [place] REPORT 10:35 AM [facility] REPOSITORY [facility] [address] [place] [address] OFFICE VISIT Date of Service: 01/07/18 MR#: [id number] Acct: [id number] Name: CAROLE LION Rep #: [id number] : 1990 Provider: Evelyne Aj MD Age/Sex: 27/F Location: [facility] [place] Status: Signed Intake Vital Signs01/07/18 Height 5 ft 5 in 01/07/18 Weight: 140 lb 01/07/18 Body Mass Index (BMI) 23.3 01/07/18 Blood Pressure 100/74 Intake Visit Reasons: NOB 11/10/17 Entertainment Musician Required: No Is patient in pain?: No Allergies adhesive Allergy (Verified 01/07/18 09:09) Rash bacitracin [From Polysporin] Allergy (Verified 01/07/18 09:09) Rash peanut Allergy (Verified 01/07/18 09:09) Unknown polymyxin B [From Polysporin] Allergy (Verified 01/07/18 09:09) Rash processed food Allergy (Mild, Uncoded 01/01/18 10:14) Other taro Allergy (Mild, Uncoded 01/01/18 10:14) Other Medications vitamin,calcium,rsxypkps-fgqu-jvfrv acid tablet 1 tab PO QDAY 01/01/18 [History Confirmed 01/07/18] Last Menstral Period: 11/10/17 Zika: Zika virus screening: Negative : No PFSH PFSH Medical History Abnormal Pap smear of cervix (Acute) Right ovarian cyst (Acute) Surgical History History of right oophorectomy (Acute) Family History Grandmother Diabetes Grandfather Heart disease Social History Smoking Status: Never smoker alcohol intake: never substance use type: does not use caffeine: No what type of physical activity do you participate in: walking seatbelt use: always do you feel safe at home: Yes additional social history: -Christiana Harper [employer] Patient works at [employer] Pregancy History 1 Elective abortions Hx Para Spontaneous abortions HPI NOB 11/10/17: Details: CAROLE LION is a 27 year old who presents for New OB visit. OB Visit ADWOA Calculator Estimated Delivery Date 08/17/18 Based on LMP (certain) 11/10/17 Current WG 8w 2d Number 1 Comments: crl 1.89 cm fht 160. consistwnt with LMP Expected Delivery Route/Plan Specific Issue/Plans flu vaccine: [] tdap vaccine: [] rhogam: [] LARC form signed: [] labor support person: [] pain management: [] cut cord/dad catch: [] : [] PP control planned: [] discussed possible routes of delivery and associated risks: [] special requests: [] Menstrual History Last Menstral Period: 11/10/17 Reported LMP: definite Normal amount/duration: Yes On hormonal BC at conception: No Antepartum Record Genetic Screening: Congenital Heart Defect: Other, Neural Tube Defect: Other, Hemoglobinopathy Or Carrier: Other, Cystic Fibrosis: Other, Chromosome Abnormality: Other, Shaw-Sachs: Other, Hemophilia: Other, Intellectual Disability/Autism: Other, Recurrent Loss/Stillbirth: Other, Other Structural Defect: Other, Other Genetic Disease: Other, Maternal Metabolic Disorder: Other Infection History: Live with someone with TB or Exposed to TB: No, Patient or Partner has history of Genital Herpes: No, Rash or Viral illness since last mentrual period: No, Prior GBS-Infected child: No, History of STD: No, HIV Infection: No, History of Hepatitis: No, Recent travel outside of [place]: No, Concern for Hep exposure: No, Varicella immune: Yes Medical History Medical History: 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), History of abnormal pap (mild), Negative: Diabetes, Hypertension, Heart disease, Auto-immune disorder, Kidney disease/UTI, Neurologic/epilepsy, Psychiatric, Depression/ depression, Hepatitis/liver disease, Varicosities/phlebitis, Thyroid dysfunction, Trauma/domestic violence, History of blood transfusions, D (Rh) Sensitized, Pulmonary (e.g.,TB,Asthma), Seasonal allergies, Drug/latex allergies/reactions, Breast, Operations/hospitalizations, Anesthetic complications, Uterine anomaly/seven, Infertility, Anti-retroviral treatment, Relevant family history, Other ACOG First Trimester First Trimester: , Desire for , Alcohol, Tobacco Cessation, Illicit/Recreational Drug/Substance Use, Intimate Partner Violence, Barriers to care, Unstable Housing, Communication Barriers, Environmental/Work Hazards, Anticipated Course of Care, Nurtrition and weight gain, Toxoplasmosis Precations, Use of Any medications, Sexual activity, Exercise, Dental Care, Sauna/Hot tub use, Seat Belt use, Childbirth classes/Hospital facilities, Travel, Indications for US and Screening for Aneuploidy ROS Const Denies fever(s), Reports system reviewed and no additional complaints, except as docu, Reports fatigue Eyes Reports system reviewed and no additional complaints, except as docu ENT Reports system reviewed and no additional complaints, except as docu Card Denies chest pain, Denies shortness of breath Resp Reports system reviewed and no additional complaints, except as docu, Denies shortness of breath, Denies cough GI Reports nausea, Denies abdominal pain Reports system reviewed and no additional complaints, except as docu Musc Reports system reviewed and no additional complaints, except as docu Skin/Breast Reports system reviewed and no additional complaints, except as docu Neuro Yes system reviewed and no additional complaints, except as docu Psych Reports system reviewed and no additional complaints, except as docu Endo Reports fatigue, Reports system reviewed and no additional complaints, except as docu Exam Const General: healthy appearing, comfortable, no acute distress Orientation: alert [facility] Head: normal to inspection, atraumatic, normocephalic Ears: external ears normal, hearing grossly normal bilaterally Nose: nares normal, external nose normal Mouth: oral mucosae normal Teeth and gingiva: dentition normal Eyes General: appearance normal, both eyes and all related structures Neck Neck: no lymphadenopathy, supple, normal visual inspection Thyroid: thyroid normal Chest Chest palpation AND inspection: normal inspection of the chest Breast inspection: normal inspection of the breasts, normal inspection of the axillae Breast palpation: normal palpation of the breasts, normal palpation of the axillae Resp Effort AND Inspection: normal respiratory effort GI Inspection: normal to inspection Palpation: soft, no hepatosplenomegaly General: bladder normal to palpation External Female Exam: normal external appearance, normal appearance of the urethra Urethra: normal appearance of the urethra Speculum Exam - Vagina: normal appearance of the vagina, normal vaginal discharge Speculum Exam - Cervix: normal appearance of the cervix Bimanual Exam- Vagina AND Uterus: bladder normal to palpation, normal bimanual exam, uterus non-tender, other Bimanual Exam- Adnexa, other: adnexae non-tender Skin General: no rashes or lesions noted Neuro Motor: muscle tone normal throughout, no movement abnormalities noted Extrem General: normal to inspection, full ROM Assessment AND Plan Problems 1. Z34.90 sequential screen ordered. CF screening declined. anatomy scan ordered. 2. Encounter for supervision of normal first in first trimester Z34.01 ADWOA 08/17/18 D[place]en Cruz Patient oriented to practice and discussed care expectations and screenings. ACOG book offered to patient. Discussed routine and specially indicated labs if needed- patient consents to testing. see problem list details for plan information. Optional screening including carrier screenings, neural tube defect screening, sequential screening, and NIPT screening offered to patient and patient chose: planned Orders Orders: Supplemental Info ACOG book given and patient encouraged to read about nutrition, exercise, weight gain, and food avoidance in . Coding Level of Care Code OB Routine Diagnoses Z34.90 Encounter for supervision of normal first in first trimester Z34.01 Normal : normal first Trimester: first trimester 01/07/18 1035 <Electronically signed by Evelyne Aj MD> Date Evelyne Alarcon Signature: Date (if applicable) CC: CT/NG WCH BY PCR Collected: 01/07/2018 Status: F Source: [place] 9:30 AM [facility] REPOSITORY TYPE CODE TESTS RESULT OUT OF RANGE REFERENCE UNITS LAB L8200.2100 Negative Normal Chlam Negative Trac PCR LAB L8200.2200 Negative Normal NG by Negative PCR Performed By: #### L8200.2000 #### [facility] [address] [place], [address] PAP I-G W/RFX Collected: 01/07/2018 Status: F Source: [place] HRHPV-APTIMA 9:30 AM [facility] REPOSITORY Order Comment: CYTOLOGY INFORMATION: - CLINICAL INFORMATION: - DATE LMP/MENOPAUSE: 11/10/17 LMP - COLLECTION VIAL: Thin Prep Vial - BANK BOSS SOURCE: CERVICAL - COLLECTION TECHNIQUE: CX BROOM ONLY Specimen Comment: [id number] Specimen Comment: No. of containers..01 ThinPrep Vial TYPE CODE TESTS RESULT OUT OF RANGE REFERENCE UNITS LAB L7400.0800 . Normal DIAGN Comment Result Comment: NEGATIVE FOR INTRAEPITHELIAL LESION AND MALIGNANCY. LAB L7400.0900 . Normal ADEQ Comment Result Comment: Satisfactory for evaluation. Endocervical and/or squamous metaplastic cells (endocervical component) are present. LAB L7400.1400 . Normal PERFORM Comment Result Comment: Elba Garnica, Skilled Helper (ASCP) LAB L7400.2575 . Normal TEST METHOD Comment Result Comment: This liquid based ThinPrep(R) pap test was screened with the use of an image guided system. LAB L7400.2600 . Normal . COMM LAB L7400.2700 . Normal PAPSMR Comment Result Comment: The Pap smear is a screening test designed to aid in the detection of premalignant and malignant conditions of the uterine cervix. It is not a diagnostic procedure and should not be used as the sole means of detecting cervical cancer. Both false-positive and false-negative reports do occur. LAB L7400.2800 . Normal HPV RFLX Comment Result Comment: The HPV DNA reflex criteria were not met with this specimen result therefore, no HPV testing was performed. Performed at: [facility] [address] Ezequiel Escalante W [id number] Medical Reception Specialist: Camila Morales MD, Phone: [phone] Performed By: #### L7400.0353 #### [facility] (refer to report for specific site) refer to report for address and phone number Observed: 01/07/2018 Status: F Source: [place] CULTURE, URINE 9:30 AM [facility] REPOSITORY Urine Culture Culture exhibits no growth. Performed By: #### M100.0650 #### [facility] [address] [place], [address] CURATORIAL SPECIALIST OFFICE VISIT Observed: 01/01/2018 Status: F Source: [place] REPORT 3:30 PM [facility] REPOSITORY [facility] [address] [place] [address] OFFICE VISIT Date of Service: 01/01/18 MR#: [id number] Acct: [id number] Name: CAROLE LION Rep #: [id number] : 1990 Provider: Evelyne Aj MD Age/Sex: 27/F Location: [facility] [place] Status: Signed Intake Vital Signs01/01/18 Height 5 ft 5 in 01/01/18 Weight: 140 lb 2 oz 01/01/18 Body Mass Index (BMI) 23.3 01/01/18 Blood Pressure 102/60 Intake Visit Reasons: ER FOLLOW UP - BLEEDING Chief Complaint: ER Follow Up, VB Entertainment Musician Required: No Is patient in pain?: No Allergies adhesive Allergy (Verified 12/26/17 21:26) Rash bacitracin [From Polysporin] Allergy (Verified 12/26/17 21:26) Rash peanut Allergy (Verified 12/26/17 21:26) Unknown polymyxin B [From Polysporin] Allergy (Verified 12/26/17 21:26) Rash processed food Allergy (Mild, Uncoded 01/01/18 10:14) Other taro Allergy (Mild, Uncoded 01/01/18 10:14) Other Medications vitamin,calcium,kdjzzqdi-nepu-jqlfn acid tablet 1 tab PO QDAY 01/01/18 [History Confirmed 01/01/18] Is last menstrual period known: Yes Last Menstral Period: 11/10/17 Post menopausal: No Patient : Yes : No [facility] Medical History Right ovarian cyst (Acute) Surgical History History of right oophorectomy (Acute) Family History Grandmother Diabetes Grandfather Heart disease Social History Smoking Status: Never smoker alcohol intake: never substance use type: does not use caffeine: No what type of physical activity do you participate in: walking seatbelt use: always do you feel safe at home: Yes additional social history: Christiana Crowe Patient works at [employer] ER FOLLOW UP - BLEEDING: Details: CAROLE LION is a 27 year old who presents for fu after bleedin gin the Er. she had an us done that showed viable IUP. us today shows 7w2d live IUP with no abnormal findings and fht 160 Female Reproductive History Last Menstral Period: 11/10/17 Pregancy History 1 Elective abortions Hx Para Spontaneous abortions Assessment AND Plan Problems 1. Encounter for supervision of normal first in first trimester Z34.01 2. Z34.90 Plan fu for new ob visit, on pnv. acog educatio elliot Coding Level of Care Code No Charge Diagnoses Encounter for supervision of normal first in first trimester Z34.01 Normal : normal first Trimester: first trimester Z34.90 01/01/18 1530 <Electronically signed by Evelyne Aj MD> Date Evelyne Aj MD Cosigner Signature: Date (if applicable) CC: EMERGENCY DEPARTMENT Observed: 12/27/2017 Status: F Source: [place] SUMMARY 2:54 PM [facility] REPOSITORY [facility] Medical Records Department [address] [place] [address] Emergency Department Summary 12/26/17 2353 MR#: [id number] Acct: [id number] Name: CAROLE LION Rep #: [id number] : 1990 27 From: Ramos Shepard MD PCP: Joseph Ford MD Status: DEP ER - ER Visit Summary Date of Service: 12/26/17 Chief Complaint: Vaginal bleeding History of Present Illness: The patient is a [address] Kristopher Marrufo. She is 6 weeks and 4 days based on her last menstrual period. She has not had an ultrasound. This is her first . Her blood type is a positive. Patient reports that approximately 1 hour ago she passed a large amount of blood. Currently she is only spotting. She describes an aching suprapubic pain that is 4 out of 10 at worst and 2 out of 10 currently. Is worsened by movement and relieved by remaining still. She denies any other complaints. Physical Examination: Vitals: Stable. Afebrile. General: Well-nourished and well-developed. Head: Normocephalic atraumatic. Neck: Supple, no lymphadenopathy. No JVD. Nontender. Cardiovascular: Regular rate and rhythm. No murmurs. Respiratory: No respiratory distress. Clear to auscultation bilaterally. Abdominal: Soft, mild suprapubic tenderness to palpation, nondistended, normal bowel sounds. No guarding, rebound, or peritoneal signs. Back: Nontender. Extremities: Nontender, no edema. Skin: Normal color, no rash. Neurologic: Alert and oriented 3. Cranial nerves II through XII are intact. Normal strength and sensation. Psych: Normal affect. Test Results: Labs were reviewed and her blood type is indeed a positive. Her quantitative hCG was 12,919 on December 18. Today her quant is 57,851. Transvaginal ultrasound shows a single intrauterine at 6 weeks 5 days with heart tones 134. It does show a corpus luteum cyst on the left. There also is a 5.9 cm complex left ovarian cyst that is likely hemorrhagic. Emergency Department Course and Treatment: Patient refused pain and nausea medications. She is resting comfortably. Treatment Plan: The patient was discussed with Dr. Kristopher Marrufo. At this time it is not felt that the hemorrhagic cyst should cause any further problems. She is instructed to follow-up Dr. Aj within a week for another exam. Return to the emergency department for any worsening symptoms. Disposition: To home in improved and stable condition. Impression: 1. First trimester . 2. Vaginal bleeding. 3. Left ovarian hemorrhagic cyst. This note was generated with Map[employer] dictation software. It may contain incorrect words, spelling, and punctuation that were not noted in review of the chart prior to signing ED Disposition - Plan for ED Patient: Disposition: Home or Assisted Living Chief Complaint: Vag Bld, Preg Instructions: ED Miscarriage Poss Referrals: Evelyne Aj MD [STAFF PHYSICIAN] - 1 Week What to do if you have Problems For any increased pain, shortness of breath, bleeding, nausea or vomiting, chest pain, or any unexpected problems, contact your Primary Care Provider. Call [facility] ([phone]) or report to the closest Emergency Room. Call 911 if necessary. 12/27/17 1454 <Electronically signed by Ramos Shepard MD> Date Ramos Shepard MD Cosigner Signature (If Indicated): Date CC: Joseph Ford MD HCG TITER QUANT., Collected: 12/26/2017 Status: F Source: [place] SERUM 11:00 PM [facility] REPOSITORY TYPE CODE TESTS RESULT OUT OF RANGE REFERENCE UNITS LAB L700.8000 <9 non-preg mIU/mL High HCG 41726 QUANT. Performed By: #### L700.8000 #### [facility] [address] [place], [address] TRANSVAGINAL W/PREG US Observed: 12/26/2017 Status: F Source: [place] 10:00 PM [facility] REPOSITORY [facility] Imaging Services [address] [place] [address] Transvaginal w/Preg US MR#: [id number] Acct: [id number] Name: CAROLE LION Rep #: [id number] : 1990 F 27 From: Clarisa Parisi MD PCP: Joseph Ford MD Status: [facility] ER Study: Transvaginal w/Preg US Date of Exam: 12/26/17 Exam# [id number] Ordering Dr: Ramos Shepard MD STUDY: FIRST TRIMESTER OBSTETRICAL ULTRASOUND REASON FOR EXAM: Female, 27 years old. Heavy bleeding with cramps. LMP: 11/10/2017. TECHNIQUE: Transabdominal PRIOR ULTRASOUND: None. FINDINGS: Gravid uterus measures 8.7 x 4.2 x 5.8 cm. Intrauterine gestational sac is identified. There is a single live intrauterine gestation. Cardiac activity is documented, with heart rate of 134. Mean sonographic EGA based on crown-rump length measures 6 weeks 5 days. Normal yolk sac is present. Cervix is closed. No evidence of subchorionic bleed. There is mild free fluid in the cul-de-sac. Right ovary is not visualized. Left ovary is enlarged, measuring approximately 10.8 x 5 x 6.2 cm. There is a 5.7 x 4.9 x 5.9 cm complex cyst with hypoechoic material and septations. This likely represents a hemorrhagic cyst. A simple cyst measures 3.2 x 3.8 cm. Ovarian arterial and venous flow is documented. US/Transvaginal w/Preg US IMPRESSION: 1. Single live intrauterine gestation with EGA 6 weeks 5 days. 2. A 5.9 cm complex left ovarian cyst, likely hemorrhagic. 3. A 3.8 cm simple left ovarian cyst, possible corpus luteum of . 4. Mild free fluid in the cul-de-sac. Electronically Signed: Clarisa Parisi MD at 23:24 EDT Tel , Service support , CC: Ramos Shepard MD; Joseph Ford MD Centrifugal Spinner: Signed TYPE AND SCREEN Collected: 12/18/2017 Status: F Source: [place] 4:15 PM [facility] REPOSITORY Order Comment: Reason for Type AND Screen/Red Cells: TYPE CODE TESTS RESULT OUT OF RANGE REFERENCE UNITS LAB B10.0800 A Normal BLOOD TYPE GEL POSITIVE LAB B100.4000 Normal Antibody NEGATIVE Screen Performed By: #### B101.7450 #### [facility] [address] [place], [address] HCG TITER QUANT., Collected: 12/18/2017 Status: F Source: [place] SERUM 8:36 AM [facility] REPOSITORY TYPE CODE TESTS RESULT OUT OF RANGE REFERENCE UNITS LAB L700.8000 <9 non-preg mIU/mL High HCG 67336 QUANT. Performed By: #### L700.8000 #### [facility] [address] [place], [address] HCG TITER QUANT., Collected: 12/12/2017 Status: F Source: [place] SER[place] 7:11 AM [facility] REPOSITORY TYPE CODE TESTS RESULT OUT OF RANGE REFERENCE UNITS LAB L700.8000 <9 non-preg mIU/mL High HCG 1173 QUANT. Performed By: #### L700.8000 #### [facility] [address] [place], [address] HCG TITER QUANT., Collected: 12/10/2017 Status: F Source: [place] SER[place] 9:19 AM [facility] REPOSITORY TYPE CODE TESTS RESULT OUT OF RANGE REFERENCE UNITS LAB L700.8000 <9 non-preg mIU/mL High HCG 478 QUANT. Performed By: #### L700.8000 #### [facility] [address] [place], [address] ALLERGIES ALLERGIES DATE TYPE / CODE NAME / CODE REACTION SEVERITY SOURCE 05/31/2018 Drug peanut/[id number] Unknown Unknown [place] Allergy/536000799(S 68(RXNORM) [facility] NOMED CT) Hospital Repository 05/31/2018 Drug bacitracin/F006 Rash Unknown [place] Allergy/590181021(S 766489(RXNORM) [facility] NOMED CT) Hospital Repository 05/31/2018 Drug adhesive/G48658 Rash Unknown [place] Allergy/155031302(S 3245(RXNORM) [facility] NOMED CT) Hospital Repository 05/31/2018 Drug polymyxin Rash Unknown [place] Allergy/399564696(S B/A731761579(RX [facility] NOM[facility] CT) NORM) Hospital Repository 05/13/2018 Miscellaneous processed food Other [place] Allergy/298440133([facility]) Hospital Repository 05/13/2018 Miscellaneous taro Other [place] Allergy/658386375([facility]) Hospital Repository ENCOUNTERS ENCOUNTERS ADMIT/DISCHARGE ACCOUNT ADMITTING ENCOUNTER LOCATION SOURCE NUMBER CLASS 05/31/2018 [id number] Ambulatory [facility] Hospital ing:PAVLAB Repository 05/31/2018/05/31/19 [id number] Ambulatory BMSBuilding:B [place] [facility] Repository 05/30/2018 [id number] Ambulatory Building:[facility] Repository 05/13/2018 [id number] Ambulatory BMSBuilding:B [place] MS.[facility] Repository 05/13/2018/05/13/20 [id number] Ambulatory [place] [address] [facility] ing:WPOUTRoom Repository : WP012 05/01/2018/05/01/20 [id number] Ambulatory BMSBuilding:B [place] [facility] Repository 04/22/2018 [id number] Ambulatory Building:[facility] Repository 04/03/2018/04/03/20 [id number] Ambulatory BMSBuilding:B [place] [facility] Repository 03/21/2018/03/21/20 [id number] Ambulatory Building:[address] Repository 03/06/2018/03/06/20 [id number] Ambulatory BMSBuilding:B [place] 18 [facility] Hospital Repository 02/26/2018 [id number] Ambulatory [facility] Hospital ing:HW Repository 02/05/2018/02/06/20 [id number] Ambulatory BMSBuilding:B [place] 18 [facility] Hospital Repository 01/07/2018 [id number] Ambulatory [facility] Hospital ing:LABSPEC Repository 01/07/2018 [id number] Ambulatory [facility] Hospital ing:LAB Repository 01/07/2018/01/08/20 [id number] Ambulatory BMSBuilding:B [place] [address] [facility] Repository 01/01/2018 [id number] Ambulatory BMSBuilding:B [place] [facility] Repository 01/01/2018/01/02/20 [id number] Ambulatory BMSBuilding:B [place] [address] [facility] Repository 12/26/2017/12/28/19 [id number] Emergency [place] [address] Hospital ing:ED Repository 12/18/2017 [id number] Ambulatory [facility] Hospital ing:LAB Repository 12/12/2017 [id number] Ambulatory [facility] Hospital ing:LAB Repository 12/10/2017 [id number] Ambulatory [facility] Hospital ing:LAB Repository PAYERS PAYERS ENCOUNTER GUARANTOR PAYER SUBSCRIBER SOURCE 05/31/2018 CAROLE E Primary CAROLE E [place] [id number] Insurance:ANTHEMPolic STAFFORDDOB: Community SANDOVAL y Number: [id number] [place], [place] [id number] Repository [address]Rfc: [phone] Date:3554-79-55CN [phone] ([facility] [address], [place] [address]DN: 05/31/2018 Secondary NOT GIVENUNK [place] Insurance:SELF PAY [facility] Number: Effective Repository Date:2018-05-31 05/31/2018 CAROLE E Primary CAROLE E [place] [id number] Insurance:ANTHEMPolic STAFFORDDOB: Community SANDOVAL y Number: [id number] [id number] Repository [address]Qcn: ([phone]) Date:1428-10-19HY [phone] () [address] [place] [address]27[address]UY: 05/31/2018 Secondary NOT GIVENUNK [place] Insurance:SELF PAY [facility] Number: Effective Repository Date:2018-05-31 05/30/2018 CAROLE Primary CAROLE [facility] STAFFORDDOB: Insurance:ANTHEMPolic STAFFORDDOB: Hospital y Number: [id number] Repository SANDOVAL [id number] [facility] [place] Date: [place], [place] [address]Qpu: [phone] () 05/13/2018 CAROLE E Primary CAROLE E [place] [id number] Insurance:ANTHEMPolic STAFFORDDOB: Community SANDOVAL y Number: [id number], [place] [id number] Repository 13[address]Hpr: ([phone]) Date:1914-40-96AL [phone] () [address] [place] [address] 00921BS: 05/13/2018 Secondary NOT GIVENUNK [place] Insurance:SELF PAY [facility] Number: Effective Repository Date:2018-05-13 05/13/2018 CAROLE E Primary CAROLE E [place] [id number] Insurance:ANTHEMPolic STAFFORDDOB: Community SANDOVAL y Number: [id number], [place] [id number] Repository [address]Kmj: ([phone]) Date:1904-03-45SF [phone] () [address] [place] [address] 88120GU: 05/13/2018 Secondary NOT GIVENUNK [place] Insurance:SELF PAY [facility] Number: Effective Repository Date:2018-05-13 05/01/2018 CAROLE E Primary CAROLE E [place] [id number] Insurance:ANTHEMPolic STAFFORDDOB: Community SANDOVAL y Number: [id number], [place] [id number] Repository [address]Pyu: ([phone]) Date:4013-76-12XJ [phone] () [address] [place] [address] 94567LU: 05/01/2018 Secondary NOT GIVENUNK [place] Insurance:SELF PAY [facility] Number: Effective Repository Date:2018-05-01 04/22/2018 CAROLE Primary CAROLE [facility] STAFFORDDOB: Insurance:ANTHEMPolic STAFFORDDOB: Hospital y Number: [id number] Repository S[place]AL [id number] [address] [place] Date: [place] [address]Fog: [phone] () 04/03/2018 CAROLE E Primary CAROLE E [place] [id number] Insurance:ANTHEMPolic STAFFORDDOB: Community SANDOVAL y Number: [id number], [place] [id number] Repository [address]Ekv: ([phone]) Date:4797-91-49SA [phone] () [address] [place] [address] 40[address]VE: 04/03/2018 Secondary NOT GIVENUNK [place] Insurance:SELF PAY [facility] Number: Effective Repository Date:2018-04-02 03/21/2018 CAROLE Primary [facility] STAFFORDDOB: Insurance:ANTHEMPolic STAFFORDDOB: Hospital y Number: [id number] Repository SANDOVAL [id number] [address] [place] Date: [place] [address]Szi: [phone] () 03/06/2018 CAROLE E Primary CAROLE E [place] [id number] Insurance:ANTHEMPolic STAFFORDDOB: Community SANDOVAL y Number: [id number], [place] [id number] Repository [address]Vjk: ([phone]) Date:1077-75-76TZ [phone] () [address] [place] [address] 617[address]VE: 03/06/2018 Secondary NOT GIVENUNK [place] Insurance:SELF PAY [facility] Number: Effective Repository Date:2018-03-06 02/26/2018 CAROLE E Primary NOT GIVENUNK [place] [id number] Insurance:SELF PAY [place] Number: Effective Repository [address]Ebv: ([phone]) Date:2018-02-261921 () 02/05/2018 CAROLE E Primary CAROLE E [place] [id number] Insurance:ANTHEMPolic STAFFORDDOB: Community SANDOVAL y Number: [id number], [place] [id number] Repository [address]Owo: ([phone]) Date:5453-10-13US [phone] () [address] [place] [address] 31372YW: 02/05/2018 Secondary NOT GIVENUNK [place] Insurance:SELF PAY [facility] Number: Effective Repository Date:2018-01-29 01/07/2018 CAROLE E Primary CAROLE E [place] [id number] Insurance:ANTHEMPolic STAFFORDDOB: Community SANDOVAL y Number: [id number], [place] [id number] Repository [address]Wda: ([phone]) Date:5307-33-53TY [phone] () [address] [place] [address] 57140DZ: 01/07/2018 Secondary NOT GIVENUNK [place] Insurance:SELF PAY [facility] Number: Effective Repository Date:2018-01-07 01/07/2018 CAROLE E Primary CAROLE E [place] [id number] Insurance:ANTHEMPolic STAFFORDDOB: Community SANDOVAL y Number: [id number], [place] [id number] Repository [address]Kfs: ([phone]) Date:5103-29-84LD [phone] () [place], [place] [address]FI: 01/07/2018 Secondary NOT GIVENUNK [place] Insurance:SELF PAY [facility] Number: Effective Repository Date:2018-01-07 01/07/2018 CAROLE E Primary CAROLE E [place] [id number] Insurance:ANTHEMPolic STAFFORDDOB: Community SANDOVAL y Number: [id number], [place] [id number] Repository [address]Yih: ([phone]) Date:5753-91-01ZX [phone] () [place]165[address]XXSAQQV, [place] [address]FQ: 01/07/2018 Secondary NOT GIVENUNK [place] Insurance:SELF PAY [facility] Number: Effective Repository Date:2018-01-07 01/01/2018 Antonio E Primary Antonio E [place] [id number] State Insurance:ANTHEMPolic BurleyDOB: Community Route y Number: [id number], [id number] Repository [place] [address]Fmh: Date:1134-22-15TU [address]LWTHNAR, [place] () [address]YH: 01/01/2018 Secondary NOT GIVENUNK [place] Insurance:SELF PAY [facility] Number: Effective Repository Date:2017-11-30 01/01/2018 CAROLE E Primary CAROLE E [place] [id number] Insurance:ANTHEMPolic STAFFORDDOB: Community SANDOVAL y Number: [id number], [place] [id number] Repository [address]Qlb: ([phone]) Date:7768-87-07ZG [phone] () [address]36[address]ZKKPOS, [place] [address]ZX: 01/01/2018 Secondary NOT GIVENUNK [place] Insurance:SELF PAY [facility] Number: Effective Repository Date:2018-01-01 12/26/2017 CAROLE E Primary CAROLE E [place] [id number] Insurance:ANTHEMPolic STAFFORDDOB: Community SANDOVAL y Number: [id number], [place] [id number] Repository [address]Fvg: ([phone]) Date:1426-14-18XQ [phone] () RAMOS GANDHI [address]IV: 12/26/2017 Secondary NOT GIVENUNK [place] Insurance:SELF PAY [facility] Number: Effective Repository Date:2017-12-26 12/18/2017 CAROLE E Primary CAROLE E [place] [id number] Insurance:ANTHEMPolic STAFFORDDOB: Community SANDOVAL y Number: [id number], [place] [id number] Repository [address]Lvt: ([phone]) Date:8514-56-56AJ [phone] () 616696JKXHNIWRAMOS JACKSON [address]RQ: 12/18/2017 Secondary NOT GIVENUNK [place] Insurance:SELF PAY [facility] Number: Effective Repository Date:2017-12-18 12/12/2017 CAROLE E Primary CAROLE E [place] [id number] Insurance:ANTHEMPolic STAFFORDDOB: Community SANDOVAL y Number: [id number], [place] [id number] Repository [address]Nuh: ([phone]) Date:7763-09-64LI [phone] () 0929[place]ZLMTFPM, [place] [address]MA: 12/12/2017 Secondary NOT GIVENUNK [place] Insurance:SELF PAY [facility] Number: Effective Repository Date:2017-12-12 12/10/2017 CAROLE E Primary CAROLE E [place] [id number] Insurance:ANTHEMPolic STAFFORDDOB: Community SANDOVAL y Number: [id number], [place] [id number] Repository [address]Tei: ([phone]) Date:0568-52-83BJ [phone] () 882380CPYFDQGRAMOS JACKSON [address]JM: 12/10/2017 Secondary NOT GIVENUNK [place] Insurance:SELF PAY [facility] Number: Effective Repository Date:2017-12-10
== END ==
PROVIDERS: Family Provider Family Medicine; PCP Family Medicine; Visit Provider Nurse Practitioner Women's Health
DX: Z34.90 Encounter for supervision of normal pregnancy, unspecified, unspecified trimester (principal)
CPT/HCPCS: 36415; 82950; 85025

== ENCOUNTER → 2018-07-10 10:27 | Outpatient (CLI) | payer BC, SELFPAY ==
[2018-07-10 10:14] VITALS: BMI 24.7
[2018-07-10 11:17] LABS: ROM Internal Control Test YES-OK TO RESULT pt. (Internal QC); Record Kit Lot#, ROM+ J7836
[2018-07-10 11:18] LABS: ROM Patient Test Negative (Negative)
== END ==
PROVIDERS: Family Provider Family Medicine; PCP Family Medicine; Referring Provider Nurse Practitioner Women's Health; Visit Provider Nurse Practitioner Women's Health
DX: O26.899 Other specified pregnancy related conditions, unspecified trimester (principal); N89.8 Other specified noninflammatory disorders of vagina; Z3A.00 Weeks of gestation of pregnancy not specified
CPT/HCPCS: 84112

== ENCOUNTER → 2018-07-23 16:59 | Outpatient (CLI) | payer BC, SELFPAY ==
[2018-07-23 09:07] VITALS: BMI 24.7
== END ==
PROVIDERS: Family Provider Family Medicine; PCP Family Medicine; Referring Provider Obstetrics & Gynecology; Visit Provider Obstetrics & Gynecology
DX: Z34.90 Encounter for supervision of normal pregnancy, unspecified, unspecified trimester (principal)
CPT/HCPCS: 87081

== ENCOUNTER 2018-08-05 02:50 | Inpatient (IN) | payer BC, SELFPAY ==
[2018-06-25 09:18] VITALS: BMI 24.7
[2018-07-30 09:11] VITALS: BMI 24.7
[2018-08-05 03:13] VITALS: BMI 27.6
[2018-08-05] MEDS: Lactated Ringers 1,000 ML 50 ML IV ×2 (03:15→03:29)
[2018-08-05] MEDS: Nalbuphine 10 MG/ML Ampul IV (03:29)
[2018-08-05 03:31] LABS: Absolute Lymphocyte Count 1.96 X10^3/ul (0.83-4.51); Absolute Neutrophil Count 7.2 X10^3/uL (2.0-7.7); Basophil# 0.02 X10^3/uL; Basophil% 0.2 % (0-1); Eosinophil# 0.09 X10^3/uL; Eosinophils% 0.9 % (0-5); Hematocrit 37.4 % (37-47); Hemoglobin 12.8 g/dl (12.0-15.0); Lymphocyte # 1.96 X10^3/ul (4.0); Mean Corp Hgb Conc 34.2 g/gl (32-36); Mean Corpuscular Hgb 32.1 pg (27.0-32.0); Mean Corpuscular Volume 93.7 fL (81-99); Mean Platelet Vol. 10.7 fl (6.2-12.0); Monocyte# 0.96 X10^3/uL; Monocyte% 9.3 % (0-10); Neutrophil # 7.21 X10^3/uL (2.7-7.7); POSITIVE COUNT NO; POSITIVE DIFFERENTIAL NO; POSITIVE MORPHOLOGY NO; Platelet Count 175 K/mm3 (150-450); RBC Distribution Width CV 13.4 % (11.6-14.6); RBC Distribution Width SD 45.8 fl (35.1-43.9); Red Blood Count 3.99 M/mm3 (4.2-5.4); White Blood Count 10.3 K/mm3 (4.4-11.0)
[2018-08-05] MEDS: Ondansetron 4 MG/2 ML Vial IV (03:35)
[2018-08-05] MEDS: 0.9% Saline Lock 10 ML Syringe IV (03:37)
--- NOTE | 2018-08-05 04:26 | PCM.HP.OB ---
- Problem List (1) Active labor at term Status: Acute (2) Supervision of normal Status: Acute Qualifiers: Comment: PRR ADWOA 08/17/18 boy Sam Piyush (3) Status: Acute Qualifiers: Comment: genetic, carrier, and NTD screening declined. low lying placenta/resolved History Date of Admission: 08/05/18 Final ADWOA: 08/17/18 Gestational age: 38 Weeks and 2 Days History of this : This is a 28 year-old, G [], P [], at 38 weeks gestational age. Medical History: Medical History (Last Reviewed 07/30/18 @ 09:10 by Donya Danielle) Abnormal Pap smear of cervix R87.619 Right ovarian cyst N83.201 Surgical History: Surgical History (Last Reviewed 07/30/18 @ 09:10 by Donya Danielle) History of right oophorectomy Z90.721 Allergies adhesive Allergy (Verified 08/05/18 03:24) Rash bacitracin [From Polysporin] Allergy (Verified 08/05/18 03:24) Rash peanut Allergy (Verified 08/05/18 03:24) Hives polymyxin B [From Polysporin] Allergy (Verified 08/05/18 03:24) Rash processed food Allergy (Mild, Uncoded 08/05/18 03:24) Other taro Allergy (Mild, Uncoded 08/05/18 03:24) Hives Home Medications: Home Medications vitamin,calcium,sljlopoq-zbwv-dlejg acid tablet 1 tab PO QDAY 01/01/18 Ranitidine HCl 150 mg PO BID PRN 05/13/18 Smoking Status: Never smoker Alcohol: None Number of Fetus(es): 1 Heart Tracin moderate variability reactive no decelerations category I tracing [place]: regular History Past Pregnancies: Past Pregnancies Delivery Date Name GA/Weeks Outcome Route Weight Infant Gender Labor Length Anesthesia Delivery Location Provider FOB Labs: Mom's Labs & Results 08/05/18 08/05/18 03:15 03:15 WBC 10.3 RBC 3.99 L Hgb 12.8 Hct 37.4 MCV 93.7 MCH 32.1 H MCHC 34.2 RDW 13.4 RDW Differential 45.8 H Plt Count 175 MPV 10.7 Immature Gran % (Auto) 0.600 Neut % (Auto) 70.0 Lymph % (Auto) 19.0 [place] % (Auto) 9.3 Eos % (Auto) 0.9 Baso % (Auto) 0.2 Absolute Neuts (auto) 7.2 Absolute Lymphs (auto) 1.96 Total Counted Not Reportable Blood Type Pending Antibody Screen Pending Course Did the patient receive Yes care? Labs Blood Type: A RH: POSITIVE RPR/VDRL/Syphilis Nonreactive Rubella status Immune HbSAg Negative Date Done: 01/07/18 Chlamydia Negative Gonorrhea Negative HIV/AIDS Non-Reactive Group B Strep: Negative Current Obstetrical History Gestational Diabetes No Incompetent Cervix No Infertility No IUGR No Macrosomia No Hypertension/Pre-eclampsia No Placenta Previa/Abruption Yes: resolved PTL/PROM No Uterine anomaly No Oligohydramnios No Polyhydramnios No Multiple gestation No Past Medical History Asthma No Diabetes No Hypertension No Heart disease No Mitral valve prolapse No Neurologic/Seizure disorder/ No Migraines Kidney disease No Liver disease No Varicosities No Clotting disorders/Hx of DVT No Thyroid Dysfunction No Other medical diseases No Psychiatric disorders No Major trauma No Abnormal PAP smear No Sleep apnea No Mammogram in the last 2 years No Enter DETAILS of medical endometriosis, cyst/ovary (right) side , history Social History Marital Status: Alleged father Piyush Quiels Hx Smoking No Smoking Status Never smoker Expected Infant Delivery Method: Spontaneous Vaginal Review of Systems Constitutional: Denies: Fever, Malaise Eyes: Denies: Blurred vision, Vision Change HEENT: Denies: Head Aches, Visual Changes Cardiovascular: Denies: Chest Pain, Palpitations Respiratory: Denies: Cough, Shortness of Breath, Wheezing Gastrointestinal: Reports: Abdominal Pain. Denies: Diarrhea, Nausea, Vomiting Genitourinary: Denies: Dysuria, Hematuria Gynecological: Reports: Vaginal bleeding, Vaginal discharge Musculoskeletal: Denies: Joint Pain, Muscle pain Skin: Denies: Lesions, Rash Neurological: Denies: Blurred vision, Focal weakness, Headaches Psychiatric: Denies: Anxiety, Depression Endocrine: Denies: Heat/ Cold Intolerance Hematologic/ Lymphatic: Denies: Easy Bruising, Easy Bleeding Physical Exam General: Alert, Cooperative, No apparent distress HEENT: Atraumatic, Normocephalic. Negative for: Thyromegaly, Lymphadenopathy Cardiovascular: Regular rate Lungs: Normal air movement Abdomen: Soft, Non Tender, Gravid Neurological: Deep Tendon Reflexes 2+/4 and Symmetrical, Neuro grossly intact. 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 Negative for: Vulvar lesions Estimated gestational size: Appropriate for gestational size Presentation: Cephalic Cervix Dilation (cm): 4 Station: 0 Effacement (%): 80 Assessment/Plan All Active Problems (Last Reviewed 07/30/18 @ 09:10 by Donya Danielle) Active labor at term (Acute) Supervision of normal (Acute) (Acute) Low lying placenta nos or without hemorrhage, second trimester (Resolved) Placenta previa (Resolved) Supervision of high risk , antepartum (Resolved) Vaginal bleeding during (Resolved) This is a 28 year-old, at 38 weeks gestational age presents IAL Patient presents IAL, plan expectant management for , pitocin/AROM PRN if needed. Pain management: Plans epidural. GBS negative. Management of any complications: None I have reviewed the [facility] and made any clinically relevant updates.
--- NOTE | 2018-08-05 04:29 | HP.PCM_ITS ---
- Problem List (1) Active labor at term Status: Acute (2) Supervision of normal Status: Acute Qualifiers: Comment: PRR ADWOA 08/17/18 boy Sam Piyush (3) Status: Acute Qualifiers: Comment: genetic, carrier, and NTD screening declined. low lying placenta/resolved History Date of Admission: 08/05/18 Final ADWOA: 08/17/18 Gestational age: 38 Weeks and 2 Days History of this : This is a 28 year-old, G [], P [], at 38 weeks gestational age. Medical History: Medical History (Last Reviewed 07/30/18 @ 09:10 by Donya Danielle) Abnormal Pap smear of cervix R87.619 Right ovarian cyst N83.201 Surgical History: Surgical History (Last Reviewed 07/30/18 @ 09:10 by Donya Danielle) History of right oophorectomy Z90.721 Allergies adhesive Allergy (Verified 08/05/18 03:24) Rash bacitracin [From Polysporin] Allergy (Verified 08/05/18 03:24) Rash peanut Allergy (Verified 08/05/18 03:24) Hives polymyxin B [From Polysporin] Allergy (Verified 08/05/18 03:24) Rash processed food Allergy (Mild, Uncoded 08/05/18 03:24) Other taro Allergy (Mild, Uncoded 08/05/18 03:24) Hives Home Medications: Home Medications vitamin,calcium,bfacylfn-aund-navxm acid tablet 1 tab PO QDAY 01/01/18 Ranitidine HCl 150 mg PO BID PRN 05/13/18 Smoking Status: Never smoker Alcohol: None Number of Fetus(es): 1 Heart Tracin moderate variability reactive no decelerations category I tracing Superior: regular History Past Pregnancies: Past Pregnancies Delivery Date Name GA/Weeks Outcome Route Weight Infant Gender Labor Length Anesthesia Delivery Location Provider FOB Labs: Mom's Labs & Results 08/05/18 08/05/18 03:15 03:15 WBC 10.3 RBC 3.99 L Hgb 12.8 Hct 37.4 MCV 93.7 MCH 32.1 H MCHC 34.2 RDW 13.4 RDW Differential 45.8 H Plt Count 175 MPV 10.7 Immature Gran % (Auto) 0.600 Neut % (Auto) 70.0 Lymph % (Auto) 19.0 [place] % (Auto) 9.3 Eos % (Auto) 0.9 Baso % (Auto) 0.2 Absolute Neuts (auto) 7.2 Absolute Lymphs (auto) 1.96 Total Counted Not Reportable Blood Type Pending Antibody Screen Pending Course Did the patient receive Yes care? Labs Blood Type: A RH: POSITIVE RPR/VDRL/Syphilis Nonreactive Rubella status Immune HbSAg Negative Date Done: 01/07/18 Chlamydia Negative Gonorrhea Negative HIV/AIDS Non-Reactive Group B Strep: Negative Current Obstetrical History Gestational Diabetes No Incompetent Cervix No Infertility No IUGR No Macrosomia No Hypertension/Pre-eclampsia No Placenta Previa/Abruption Yes: resolved PTL/PROM No Uterine anomaly No Oligohydramnios No Polyhydramnios No Multiple gestation No Past Medical History Asthma No Diabetes No Hypertension No Heart disease No Mitral valve prolapse No Neurologic/Seizure disorder/ No Migraines Kidney disease No Liver disease No Varicosities No Clotting disorders/Hx of DVT No Thyroid Dysfunction No Other medical diseases No Psychiatric disorders No Major trauma No Abnormal PAP smear No Sleep apnea No Mammogram in the last 2 years No Enter DETAILS of medical endometriosis, cyst/ovary (right) side , history Social History Marital Status: Alleged father Piyush Quiles Hx Smoking No Smoking Status Never smoker Expected Infant Delivery Method: Spontaneous Vaginal Review of Systems Constitutional: Denies: Fever, Malaise Eyes: Denies: Blurred vision, Vision Change HEENT: Denies: Head Aches, Visual Changes Cardiovascular: Denies: Chest Pain, Palpitations Respiratory: Denies: Cough, Shortness of Breath, Wheezing Gastrointestinal: Reports: Abdominal Pain. Denies: Diarrhea, Nausea, Vomiting Genitourinary: Denies: Dysuria, Hematuria Gynecological: Reports: Vaginal bleeding, Vaginal discharge Musculoskeletal: Denies: Joint Pain, Muscle pain Skin: Denies: Lesions, Rash Neurological: Denies: Blurred vision, Focal weakness, Headaches Psychiatric: Denies: Anxiety, Depression Endocrine: Denies: Heat/ Cold Intolerance Hematologic/ Lymphatic: Denies: Easy Bruising, Easy Bleeding Physical Exam General: Alert, Cooperative, No apparent distress HEENT: Atraumatic, Normocephalic. Negative for: Thyromegaly, Lymphadenopathy Cardiovascular: Regular rate Lungs: Normal air movement Abdomen: Soft, Non Tender, Gravid Neurological: Deep Tendon Reflexes 2+/4 and Symmetrical, Neuro grossly intact. 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 Negative for: Vulvar lesions Estimated gestational size: Appropriate for gestational size Presentation: Cephalic Cervix Dilation (cm): 4 Station: 0 Effacement (%): 80 Assessment/Plan All Active Problems (Last Reviewed 07/30/18 @ 09:10 by Donya Danielle) Active labor at term (Acute) Supervision of normal (Acute) (Acute) Low lying placenta nos or without hemorrhage, second trimester (Resolved) Placenta previa (Resolved) Supervision of high risk , antepartum (Resolved) Vaginal bleeding during (Resolved) This is a 28 year-old, at 38 weeks gestational age presents IAL Patient presents IAL, plan expectant management for , pitocin/AROM PRN if needed. Pain management: Plans epidural. GBS negative. Management of any complications: None I have reviewed the [facility] and made any clinically relevant updates.
[2018-08-05] MEDS: fentaNYL-bupivacaine (epidural) 100 ML BAG EPIDURAL (04:37)
--- NOTE | 2018-08-05 06:15 | PCM.OB.VAG ---
- Problem List (1) Active labor at term Status: Acute (2) Supervision of normal Status: Acute Qualifiers: Comment: PRR ADWOA 08/17/18 boy Sam Piyush (3) Status: Acute Qualifiers: Comment: genetic, carrier, and NTD screening declined. low lying placenta/resolved Vaginal Delivery Maternal Presentation: Active Labor ial 38 weeks Amniotic Membrane Rupture Type: Spontaneous at home Amniotic Fluid Description: Clear Final ADWOA: 08/16/18 Gestational age: 38 Weeks and 3 Days Date of Procedure: 08/05/18 Pre-Operative Diagnosis: ial Post-Operative Diagnosis: same Surgery/ Procedure Performed: Spontaneous Vaginal Delivery Type of Anesthesia: Epidural Description of Procedure: Patient began pushing and delivered the head in the way presentation. The head was delivered atraumatically. The anterior and posterior shoulders delivered without complication followed by the rest of the and the infant was placed on the maternal abdomen. Delayed cord clamping was employed for approximately 60 seconds. Cord was clamped and cut and gentle traction was applied to the cord and the placenta delivered spontaneously immediately following it was noted to be intact with three-vessel cord. The perineum and vagina were inspected and noted to have a second-degree perineal laceration that was repaired in the usual fashion with 3-0 Vicryl repeat. EBL was 900 cc and she was noted to have some uterine atony which was remedied with bimanual massage Pitocin and Methergine. Patient and tolerated delivery well. Presentation: BIPIN Placental Delivery Description: Spontaneous Placenta Disposition: [facility] Cord Vessel Description: 3 Vessels Estimated Blood Loss: 900 A gender: Male Episiotomy Description: None Laceration: Perineal Extension/lac, 2nd degree Medications given after delivery: IV Pitocin, IM Methergin Complications: - - hemorrhage 900 cc blood loss
[2018-08-05] MEDS: Oxytocin 30 units/NS 500 ml 30 UNITS/500 ML IV.SOLN 334 UNITS IV (07:10)
[2018-08-05] MEDS: Methylergonovine 0.2 MG/ML Ampul IM (07:13)
[2018-08-05] MEDS: Oxytocin 30 units/NS 500 ml 30 UNITS/500 ML IV.SOLN 167 UNITS IV (07:40)
[2018-08-05] MEDS: Naproxen 250 MG Tablet 500 MG PO (10:03)
--- NOTE | 2018-08-05 10:09 | NURSING ---
2 250 mg Naproxen PO given with clinical instructor present
[2018-08-05] MEDS: Acetaminophen 500 MG Tablet 1000 MG PO (13:10)
--- NOTE | 2018-08-05 13:16 | NURSING ---
1000 mg APAP given with clinical instructor present
[2018-08-05 13:22] VITALS: BP 141/90; PULSE 109; RESP 16; TEMP 36.4
--- NOTE | 2018-08-05 13:47 | NURSING ---
This nursing educator reviewed the charting completed by the student nurse, Myranda Sullivan.
[2018-08-05 16:00] VITALS: BP 117/77; PULSE 94; RESP 16; TEMP 36.4
[2018-08-05] MEDS: Senna/Docusate Sodium 1 Tablet PO (16:28)
[2018-08-05] MEDS: Ketorolac 10 MG Tablet PO ×2 (16:28→21:37)
[2018-08-05 20:00] VITALS: BP 117/76; PULSE 97; RESP 18; TEMP 36.6
[2018-08-06] VITALS: BP 122/77; PULSE 99; RESP 18; TEMP 36.5
[2018-08-06 04:00] VITALS: BP 116/72; PULSE 87; RESP 17; TEMP 36.6
[2018-08-06] MEDS: Ketorolac 10 MG Tablet PO ×2 (05:50→09:50)
--- NOTE | 2018-08-06 07:49 | PCM.PN.OB ---
Patient Problems: Active and Suspected Problems (Last Reviewed 07/30/18 @ 09:10 by Donya Danielle) Active labor at term (Acute) Subjective: doing well no complaints pain controlled no CP SOB N V ambulating well tolerating po lochia moderate, and supplementing - Physical Exam General: Alert, Oriented x3 Abdomen: Soft, Non Tender, Non-Distended, - - FF below U Vital Signs Temp Pulse Resp BP 97.9 F 87 17 116/72 08/06/18 04:00 08/06/18 04:00 08/06/18 04:00 08/06/18 04:00 Oxygen Delivery Method Room Air Weight: 165 lb 12.602 oz Body Mass Index (BMI) 27.6 Intake and Output for Last 24 Hours 08/04/18 08/05/18 08/06/18 23:59 23:59 23:59 Output Total 450 / 450 Balance -450 / -450 Medical Necessity - Tobacco Use Smoking Status: Never smoker Assessment/Plan All Active Problems (Last Reviewed 07/30/18 @ 09:10 by Donya Danielle) Active labor at term (Acute) Supervision of normal (Acute) (Acute) Low lying placenta nos or without hemorrhage, second trimester (Resolved) Placenta previa (Resolved) Supervision of high risk , antepartum (Resolved) Vaginal bleeding during (Resolved) s/p PPD # 1. routine post delivery care 2. breast feeding and supplementing. Working with . 3. rh positive 4. rubella immune 5. Home today
--- NOTE | 2018-08-06 07:51 | DCINST_ITS ---
Allergies/Adverse Reactions: Allergies adhesive Allergy (Verified 08/05/18 03:24) Rash bacitracin [From Polysporin] Allergy (Verified 08/05/18 03:24) Rash peanut Allergy (Verified 08/05/18 03:24) Hives polymyxin B [From Polysporin] Allergy (Verified 08/05/18 03:24) Rash processed food Allergy (Mild, Uncoded 08/05/18 03:24) Other taro Allergy (Mild, Uncoded 08/05/18 03:24) Hives Medications to take at Discharge vitamin,calcium,bbbatydy-cdlv-csqxk acid tablet 1 tab PO QDAY 01/01/18 Ranitidine HCl 150 mg PO BID PRN 05/13/18 Primary Care Physician: Joseph Ford MD [Primary Care Provider] - Test Results: Test results from this visit will be discussed in further detail at your follow- up appointment, if applicable.
[2018-08-06 08:30] VITALS: BP 115/78; PULSE 104; RESP 16; TEMP 36.5
[2018-08-06] MEDS: Senna/Docusate Sodium 1 Tablet PO (09:51)
== END 2018-08-06 13:40 | disposition home or self-care (01) | DRG 806 ==
PROVIDERS: Admitting Provider Obstetrics & Gynecology; Family Provider Family Medicine; PCP Family Medicine; Referring Provider Obstetrics & Gynecology; Visit Provider Obstetrics & Gynecology
DX: O70.1 Second degree perineal laceration during delivery (principal); O72.1 Other immediate postpartum hemorrhage; Z37.0 Single live birth; Z3A.38 38 weeks gestation of pregnancy
CPT/HCPCS: 59050; 85025; 86850; 86900; 99218; J7120; A4216; G0378; J2405

== ENCOUNTER → 2019-07-24 18:16 | Outpatient (CLI) | payer BC, SELFPAY ==
[2019-07-23 14:27] VITALS: BMI 27.6
--- NOTE | 2019-07-24 18:20 | US_ITS ---
STUDY: ULTRASOUND TRANSVAGINAL CLINICAL: Female, 29 years old. LT FLANK PAIN S/P RT OOPHORECTOMY TECHNIQUE: Transvaginal COMPARISON: None. FINDINGS: Normal uterine size measuring 7.4 x 3.9 x 3.0 cm in maximal craniocaudal dimension. There are no myometrial masses. Normal endometrial thickness measuring 2 mm. There are no endometrial masses, and there is no fluid in the endometrial cavity. Echogenic focus is noted at the lower endometrial lining. Normal uterine cervix. Right ovary has been surgically removed. Normal left ovary, measuring 2.8 x 2.2 x 1.5 cm. There are multiple follicles without a dominant cyst. There is no free fluid in the pelvis. US/Transvaginal Non- IMPRESSION: Echogenic focus in the lower endometrial lining, possibly focal calcification. No endometrial fluid or mass. Status post right oophorectomy. Electronically Signed: Adán Crane DO at 23:50 EDT Tel [phone], Service support ,
== END ==
PROVIDERS: PCP Family Medicine; Visit Provider Nurse Practitioner Women's Health
DX: R10.9 Unspecified abdominal pain (principal); Z90.721 Acquired absence of ovaries, unilateral
CPT/HCPCS: 76830; 93976

== ENCOUNTER → 2020-02-20 | Outpatient (CLI) | payer BC, SELFPAY ==
[2020-02-20 15:19] VITALS: BMI 20.9
== END | disposition home or self-care (01) ==
LOC: LABSPEC 16:45
PROVIDERS: PCP Family Medicine; Referring Provider Obstetrics & Gynecology; Visit Provider Obstetrics & Gynecology
DX: N98.9 Complication associated with artificial fertilization, unspecified (principal)
CPT/HCPCS: 87070; 87205

== ENCOUNTER → 2020-09-16 15:57 | Outpatient (CLI) | payer BC, SELFPAY ==
[2020-02-20 15:19] VITALS: BMI 20.9
[2020-09-16 17:14] LABS: Absolute Lymphocyte Count 2.55 X10^3/uL (0.83-4.51); Absolute Neutrophil Count 3.3 X10^3/uL (2.0-7.7); Basophil# 0.04 X10^3/uL; Basophil% 0.6 % (0-1); Eosinophil# 0.14 X10^3/uL; Eosinophils% 2.1 % (0-5); Hematocrit 41.5 % (37-47); Hemoglobin 13.3 g/dL (12.0-15.0); Lymphocyte # 2.55 X10^3/ul (0.83-4.51); Lymphocyte % 37.4 % (19-41); Mean Corpuscular Hgb 29.6 pg (27.0-32.0); Mean Corpuscular Volume 92.4 fL (81-99); Mean Platelet Vol. 9.5 fl (6.2-12.0); Monocyte# 0.74 X10^3/uL; Monocyte% 10.9 % (0-10); NRBC Flagged by Analyzer 0 % (0-5); Neutrophil # 3.34 X10^3/uL (2.7-7.7); Neutrophil % 48.9 % (47-70); Platelet Count 299 K/mm3 (150-450); RBC Distribution Width CV 11.8 % (11.6-14.6); RBC Distribution Width SD 39.9 fl (35.1-43.9); Red Blood Count 4.49 M/mm3 (4.2-5.4); White Blood Count 6.8 K/mm3 (4.4-11.0)
== END ==
PROVIDERS: PCP Family Medicine; Referring Provider Family Medicine; Visit Provider Family Medicine
DX: R07.9 Chest pain, unspecified (principal)
CPT/HCPCS: 36415; 85025; 85379

== ENCOUNTER → 2021-02-21 | Outpatient (CLI) | payer BC, SELFPAY ==
[2021-02-25 16:00] LABS: HPV APTIMA, High Risk Negative (Negative)
== END | disposition home or self-care (01) ==
PROVIDERS: PCP Family Medicine; Referring Provider Obstetrics & Gynecology; Visit Provider Obstetrics & Gynecology
DX: Z12.4 Encounter for screening for malignant neoplasm of cervix (principal)
CPT/HCPCS: 87624; 88175; G0145

== ENCOUNTER → 2021-03-25 08:48 | Outpatient (CLI) | payer BC, SELFPAY ==
--- NOTE | 2021-03-25 08:52 | BI_ITS ---
MAMMOGRAPHY - BILATERAL DIAGNOSTIC REASON FOR EXAM: Female, 31 years old. Left axillary lump. Occasional left axillary tenderness following Covid vaccine. PERTINENT HISTORY: Aunt with breast cancer. TECHNIQUE: Digital bilateral breast haja (3D mammographic acquisition) in the CC and MLO projections. 2-D mediolateral oblique (MLO) and craniocaudad (CC) views of both breasts were obtained. CAD: Full Field Digital Mammography with Computer Added Detection was performed. COMPARISON: None. Baseline examination. FINDINGS: Breast Composition: The breasts are extremely dense, which lowers the sensitivity of mammography. There are no dominant masses or suspicious calcifications. Findings suggestive of a small lymph node in the left axillary region. No other significant abnormalities are identified. BI/DIAG MAMM W/CAD, BILAT IMPRESSION: Negative diagnostic mammogram. With the patient''s history of a palpable lump in the left axilla, correlation with targeted ultrasound is recommended. ASSESSMENT CATEGORY: BIRADS Category 0: Incomplete. Need additional imaging evaluation. A letter regarding these results will be sent to the patient by the facility within 30 days. Approximately 10% of breast cancers are not detected by mammography. A normal mammogram should not delay biopsy of a clinically suspicious abnormality. Electronically Signed: Brandan Gonzalez MD at 10:18 EST , Service support ,
--- NOTE | 2021-03-25 08:52 | US_ITS ---
STUDY: ULTRASOUND BREAST - LEFT REASON FOR EXAM: Female, 31 years old. Left axillary fullness. TECHNIQUE: Axial and longitudinal images of the LEFT breast were performed with a high resolution ultrasound transducer. # OF IMAGES: 14 COMPARISON: Comparison is made with prior mammogram done earlier in the day. FINDINGS: LEFT Breast: There is a 1.2 cm x 0.9 cm x 0.4 cm benign appearing lymph node. US/Breast Limited Unilateral IMPRESSION: 1.2 cm x 0.9 cm x 0.4 cm benign-appearing lymph node in the left axilla. ASSESSMENT CATEGORY: BIRADS Category 2: Benign. A letter regarding these results will be sent to the patient by the facility within 30 days. Electronically Signed: Brandan Gonzalez MD at 12:23 EST , Service support ,
== END ==
PROVIDERS: PCP Family Medicine; Referring Provider Family Medicine; Visit Provider Family Medicine
DX: M79.89 Other specified soft tissue disorders (principal); Z80.3 Family history of malignant neoplasm of breast; R22.2 Localized swelling, mass and lump, trunk
CPT/HCPCS: 76642; 77062; 77066; G0279

== ENCOUNTER → 2021-04-21 | Outpatient (CLI) | payer BC, SELFPAY | END | disposition home or self-care (01) | PROVIDERS: PCP Family Medicine; Referring Provider Family Medicine; Visit Provider Family Medicine | DX: U07.1 COVID-19 (principal) | CPT/HCPCS: 87635; U0005; U0003 ==

== ENCOUNTER → 2025-03-09 | Outpatient (CLI) | payer BC, SELFPAY ==
--- NOTE | 2025-03-09 14:21 | CT_ITS ---
PROCEDURE: CT/Abdomen/Pelvis without Cont
== END | disposition home or self-care (01) ==
LOC: CT 14:18
PROVIDERS: PCP Internal Medicine; Referring Provider Urology; Visit Provider Urology
DX: R10.9 Unspecified abdominal pain (principal)
CPT/HCPCS: 74176

== ENCOUNTER → 2025-04-20 | Outpatient (CLI) | payer BC, SELFPAY ==
[2025-04-23 10:08] LABS: HPV APTIMA, High Risk Negative (Negative)
== END | disposition home or self-care (01) ==
LOC: LABSPEC 16:24
PROVIDERS: PCP Internal Medicine; Visit Provider Obstetrics & Gynecology
DX: Z12.4 Encounter for screening for malignant neoplasm of cervix (principal)
CPT/HCPCS: 87624; 88175; G0145